=== PATIENT | female | born 1995 | race Caucasian/White ===

== ENCOUNTER 2018-12-07 23:56 | Emergency (ER) | payer SELFPAY ==
[2018-12-08 02:00] LABS: Basophils % (Auto) 0.2 % (0.0-1.8); Eosinophils % (Auto) 0.3 % (0.0-4.3); Hematocrit 35.1 % (30.3-42.9); Hemoglobin 11.7 gm/dl (10.1-14.3); Lymphocytes # (Auto) 1.9 K/mm3 (1.2-5.4); Lymphocytes % (Auto) 18.4 % (13.4-35.0); Mean Corpuscular HGB Conc 33 % (30-34); Mean Corpuscular Volume 84 fl (79-97); Monocytes # (Auto) 0.6 K/mm3 (0.0-0.8); Platelet Count 260 K/mm3 (140-440); Red Cell Distribution Width 15.8 % (13.2-15.2)
[2018-12-08 02:38] LABS: Bilirubin,Urine NEG (Negative); Blood,Urine LG (Negative); Color,Urine Yellow (Yellow); Mucus,Urine FEW /HPF; Protein,Urine <15 mg/dL mg/dL (Negative); Urobilinogen,Urine < 2.0 mg/dL (<2.0)
--- NOTE | 2018-12-08 06:26 | Ultrasound Report ---
FINAL REPORT EXAM: US OB >= 14 WEEKS FETUS HISTORY: 19 wks with spotting COMPARISONS: None. FINDINGS: Transabdominal 2nd trimester grayscale, color Doppler and M-mode obstetric pelvic ultrasound A single living intrauterine is present in breech presentation with recorded cardiac activi ty of 130 beats per minute. Amniotic fluid volume is subjectively normal. Cervical length is approxim ately 4.6 cm. The cervix appears closed. Anterior placenta shows a couple of ill-defined hypoechoic a reas measuring up to 2.8 cm in greatest dimension. No internal flow on color Doppler or masslike qual ities. No retroplacental hemorrhage or other focal placental abnormality. No evidence of previa. Biparietal diameter is 4.6 cm Head circumference is 17.4 cm Abdominal circumference is 15.5 cm Femoral length is 3.2 cm Composite of biometric measurements corresponds to estimated gestational age of 20 weeks 1 day and delivery date of 04/26/2019, which are concordant with reported clinical dates of 19 weeks 4 days and delivery date of 04/30/2019. Imaged portions of the anatomy are grossly unremarkable. The diaphragm, skin line overlying the spine, cardiac chambers, abdominal and placental cord insertions are not optimally visualized. IMPRESSION: Single living intrauterine with concordant dates and no acute complication identified. The cervix appears closed and amniotic fluid volume is subjectively normal. Consider additional imaging f or worsening/persistent symptoms.
--- NOTE | 2018-12-08 07:38 | Emergency Department Report ---
ED Female HPI - General Chief complaint: Vaginal Bleeding Stated complaint: 19WKS BLEEDING Time Seen by Provider: 12/08/18 07:22 Source: patient Mode of arrival: Ambulatory Limitations: No Limitations - History of Present Illness Initial comments: This is a 23-year-old who presents to ED at approximately 19 0 station complaining of vaginal bleeding that began yesterday. She states bleeding is somewhat lightheaded continuous. She states that she receives care at the clinic in [facility]. She denies dysuria, abdominal pain, pelvic pain or any other symptoms. Patient did note that she had intercourse about 2 days ago. MD Complaint: vaginal bleeding - Related Data Previous Rx's Medication Instructions Recorded Last Taken Type Acetaminophen [Tylenol] 325 mg PO TID #20 capsule 12/08/18 Unknown Rx Allergies Allergy/AdvReac Type Severity Reaction Status Date / Time Penicillins Allergy Unknown Verified 12/08/18 01:24 ED Review of Systems ROS: Stated complaint: 19WKS BLEEDING Other details as noted in HPI Comment: All other systems reviewed and negative ED Past Medical Hx - Past Medical History Previous Medical History?: No - Surgical History Past Surgical History?: No - Social History Smoking Status: Never Smoker Substance Use Type: None - Medications Home Medications: Home Medications Medication Instructions Recorded Confirmed Last Taken Type Acetaminophen [Tylenol] 325 mg PO TID #20 capsule 12/08/18 Unknown Rx ED Physical Exam - General Limitations: No Limitations General appearance: alert, in no apparent distress - Head Head exam: Present: atraumatic, normocephalic - Eye Eye exam: Present: normal appearance - ENT ENT exam: Present: mucous membranes moist - Neck Neck exam: Present: normal inspection - Respiratory Respiratory exam: Present: normal lung sounds bilaterally. Absent: respiratory distress - Cardiovascular Cardiovascular Exam: Present: regular rate, normal rhythm. Absent: systolic murmur, diastolic murmur, rubs, gallop - GI/Abdominal GI/Abdominal exam: Present: soft, normal bowel sounds - Extremities Exam Extremities exam: Present: normal inspection - Back Exam Back exam: Present: normal inspection - Neurological Exam Neurological exam: Present: alert, oriented X3 - Psychiatric Psychiatric exam: Present: normal affect, normal mood - Skin Skin exam: Present: warm, dry, intact, normal color. Absent: rash ED Course Vital Signs 12/08/18 12/08/18 12/08/18 00:23 01:20 08:12 Temperature 98.3 F 98.3 F 98.1 F Pulse Rate 87 90 78 Respiratory 18 18 20 Rate Blood Pressure 143/83 143/83 Blood Pressure 122/75 [Right] O2 Sat by Pulse 100 99 99 Oximetry ED Medical Decision Making - Lab Data Result diagrams: 12/08/18 01:27 - Radiology Data Radiology results: report reviewed, image reviewed FINAL REPORT EXAM: US OB gt; = 14 WEEKS FETUS HISTORY: 19 wks with spotting COMPARISONS: None. FINDINGS: Transabdominal 2nd trimester grayscale, color Doppler and M-mode obstetric pelvic ultrasound A single living intrauterine is present in breech presentation with recorded cardiac activity of 130 beats per minute. Amniotic fluid volume is subjectively normal. Cervical length is approximately 4.6 cm. The cervix appears closed. Anterior placenta shows a couple of ill-defined hypoechoic areas measuring up to 2.8 cm in greatest dimension. No internal flow on color Doppler or masslike qualities. No retroplacental hemorrhage or other focal placental abnormality. No evidence of previa. Biparietal diameter is 4.6 cm Head circumference is 17.4 cm Abdominal circumference is 15.5 cm Femoral length is 3.2 cm Composite of biometric measurements corresponds to estimated gestational age of 20 weeks 1 day and delivery date of 04/26/2019, which are concordant with reported clinical dates of 19 weeks 4 days and delivery date of 04/30/2019. Imaged portions of the anatomy are grossly unremarkable. The diaphragm, skin line overlying the spine, cardiac chambers, abdominal and placental cord insertions are not optimally visualized. IMPRESSION: Single living intrauterine with concordant dates and no acute complication identified. The cervix appears closed and amniotic fluid volume is subjectively normal. Consider additional imaging for worsening/persistent symptoms. Transcribed By: GALE Dictated By: LEIGH REA MD Electronically Authenticated By: LEIGH REA MD Signed Date/Time: 12/08/18 0626 - Medical Decision Making 28-year-old female presents to ED with threatened ED course: Pt received ultra sound, CBC, urinalysis, test and quantitative ED All labs within normal limits, Ultrasound shows normal intrauterine . I discussed all findings with the patient. Discussed the patient to the abstain from intercourse until follow-up with her [facility] [facility] I discussed with the patient if follow-up with her [facility] [facility]. I discussed all labs and ultrasound findings with the patient. I discussed with the patient that he if bleeding worsens or new symptoms develop to return to ED immediately Critical care attestation.: If time is entered above; I have spent that time in minutes in the direct care of this critically ill patient, excluding procedure time. ED Disposition Clinical Impression: Threatened in second trimester Disposition: DC-01 TO HOME OR SELFCARE Is pt being admited?: No Does the pt Need Aspirin: No Condition: Stable Instructions: Threatened Miscarriage (ED), (ED) Additional Instructions: Make sure to follow up with your OBGYN as discussed. Absent from intercourse until follow-up which her [facility] [facility] If you have any worsening symptoms or develop new symptoms please return to ED immediately. Prescriptions: Acetaminophen [Tylenol] 325 mg PO TID #20 capsule Referrals: MARIAN TOBIAS MD [Primary Care Provider] - 3-5 Days Forms: Work/School Release Form(ED) Time of Disposition: 07:49
[2018-12-08 08:13] VITALS: BP 122/75
== END 2018-12-08 08:12 | disposition home or self-care (01) ==
LOC: ED 23:56
DX: O20.0 Threatened abortion (principal); Z3A.19 19 weeks gestation of pregnancy
CPT/HCPCS: 36415; 76805; 81001; 84702; 85025; 86850; 86900; 86901

== ENCOUNTER 2019-01-07 01:48 | Inpatient (IN) | payer MEDICAID, OTHER ==
[2019-01-07] MEDS ORDERED: LACTATED RINGERS 1,000 ML ONE (02:08)
[2019-01-07] MEDS ORDERED: LACTATED RINGERS 1,000 ML IV ONE ×2 (02:36→10:40)
[2019-01-07] MEDS ORDERED: STADOL IV ONE (03:41)
--- NOTE | 2019-01-07 03:56 | Ultrasound Report ---
PROCEDURE: US OB >= 14 WEEKS FETUS TECHNIQUE: Real-time limited sonographic examination was performed for evaluation of placenta for ea ch fetus with image documentation (1 or more fetuses). HISTORY: vaginal bleeding and unable to detect fht's COMPARISONS: None . FINDINGS: MATERNAL Uterus: Within normal limits . Cervix length:, 4.3 cm. There is an oval heterogeneous structure in the lower uterine segment measuri ng 11.9 x 9.8 x 10.2 cm. This could be a uterine fibroid. This was not demonstrated on the prior stud y. Internal Os: closed . FETUS IUP: Single living intrauterine . Position: Breech . Placental position: Anterior, without previa . Amniotic fluid volume: Normal Heart rate and rhythm: 90 BPM, Regular . anatomic survey: Normal . MEASUREMENTS BPD: 5.8 cm corresponding to 23 weeks and 6 days . HC: 21.9 cm corresponding to 24 weeks . AC: 19.2 cm corresponding to 23 weeks and 6 days . FL: 4 cm corresponding to 22 weeks and 5 days . Mean Gestational Age (composite criteria): 23 weeks and 4 days . Ratio biometry: Normal . Estimated Weight: 598 grams +/- 89 grams. ounces +/- .ounces. percentile. Interval growth: Appropriate . Estimated Due Date (earliest scan): 05/02/2019 . IMPRESSION: 1. Single living intrauterine gestation at approximately 23 weeks and 4 days . 2. EDC by US 05/02/2019 3. bradycardia. 4. There is an oval heterogeneous structure in the lower uterine segment measuring 11.9 x 9.8 x 10.2 cm. This could be a uterine fibroid. This was not demonstrated on the prior study. This document is electronically signed by Joe Lopez MD., January 07 2019 03:53:58 AM ET
[2019-01-07 04:45] LABS: Hemoglobin 10.2 gm/dl (10.1-14.3); Mean Corpuscular HGB Conc 34 % (30-34); Mean Corpuscular Volume 83 fl (79-97); Platelet Count 276 K/mm3 (140-440); Red Blood Count 3.59 M/mm3 (3.65-5.03); Red Cell Distribution Width 15.4 % (13.2-15.2)
[2019-01-07 04:51] LABS: Bilirubin,Urine NEG (Negative); Blood,Urine LG (Negative); Color,Urine Yellow (Yellow); Mucus,Urine 3+ /HPF; Urobilinogen,Urine < 2.0 mg/dL (<2.0)
[2019-01-07 04:53] LABS: RBC,Urine > 182.0 /HPF (0.0-6.0)
[2019-01-07] MEDS: LACTATED RINGERS 1,000 ML IV SCH (04:55)
[2019-01-07 04:57] LABS: Amphetamine Screen,Urine PRESUMPTIVE NEGATIVE; Benzodiazepines Screen,Urine PRESUMPTIVE NEGATIVE; Cannabinoid Screen,Urine PRESUMPTIVE NEGATIVE; Cocaine Screen,Urine PRESUMPTIVE NEGATIVE; Methadone Screen,Urine PRESUMPTIVE NEGATIVE; Opiate Screen,Urine PRESUMPTIVE NEGATIVE
[2019-01-07 06:15] LABS: Total Cells Counted 100
[2019-01-07 06:16] LABS: Band Neutrophils # (Manual) 0.4 K/mm3; Basophils % (Manual) 0 % (0.0-1.8); Eosinophils % (Manual) 0 % (0.0-4.3)
[2019-01-07 06:18] LABS: Anisocytosis 1+; Large Platelets 1+; Platelet Estimate Consistent w Auto; Poikilocytosis 1+
--- NOTE | 2019-01-07 07:27 | Short Stay Summary ---
Short Stay Documentation Date of service: 01/07/19 - History H&P: obtained from office Past Medical History: No medical history - Allergies and Medications Current Medications: Allergies Penicillins Allergy (Verified 12/08/18 01:24) Unknown Home Medications Medication Instructions Recorded Confirmed Last Taken Type Acetaminophen [Tylenol] 325 mg PO TID #20 capsule 12/08/18 Unknown Rx Active Medications Lactated Ringer's (Lactated Ringers) 1,000 mls @ 125 mls/hr IV DIRECT MANISHA Last Admin: 01/07/19 04:55 Dose: 125 mls/hr Documented by: Short Stay Discharge Plan Follow up with: ALEXX MORSE MD [Primary Care Provider] - 7 Days
--- NOTE | 2019-01-07 09:51 | History and Physical Report ---
History of Present Illness Date of admission: 01/07/19 01:53 Chief complaint: vaginal bleeding History of present illness: 23yo at 23 6/7weeks presents with vaginal bleeding since 11pm that began during sexual intercourse. She bled into the bed and car. She has a history of vaginal bleeding on 4 previous episodes first at 12 weeks. Her US 12/2018 revealed 2.8cm hyperechoic regions and today a grade 3 placenta with 11.9x10cm lower uterine segment mass. Based on clinical presentation hyperechoic mass is suspected placenta abruption. She has had inconsistent care at [facility] with 4 visits and 2 ER visits. She has a recent miscarriage at 11 weeks (measuring 8 weeks) February 2018. She is O positive blood type. Past History Past Surgical History: other (right wrist surgery) Family/Genetic History: other (maternal aunt SLE) Social history: single - Obstetrical History : 2 Number of Living Children: 0 Medications and Allergies Allergies Allergy/AdvReac Type Severity Reaction Status Date / Time Penicillins Allergy Unknown Verified 12/08/18 01:24 Home Medications Medication Instructions Recorded Confirmed Last Taken Type Acetaminophen [Tylenol] 325 mg PO TID #20 capsule 12/08/18 Unknown Rx Active Meds: Active Medications Acetaminophen (Tylenol) 650 mg PO Q4H PRN PRN Reason: Pain, Mild (1-3) Butorphanol Tartrate (Stadol) 1 mg IV Q2H PRN PRN Reason: Labor Pain Diphenhydramine HCl (Benadryl) 25 mg PO Q6H PRN PRN Reason: Itching Lactated Ringer's (Lactated Ringers) 1,000 mls @ 125 mls/hr IV DIRECT MANISHA Last Admin: 01/07/19 04:55 Dose: 125 mls/hr Documented by: Sodium Chloride (Nacl 0.9% 500 Ml) 500 mls @ 0 mls/hr IV ONCE ONE Stop: 01/07/19 09:42 - Vital Signs Vital signs: Vital Signs Pulse Pulse Ox 73 100 01/07/19 01:52 01/07/19 01:52 Temp Pulse Resp BP Pulse Ox 97.8 F 77 18 122/81 100 01/07/19 07:00 01/07/19 07:22 01/07/19 04:55 01/07/19 07:22 01/07/19 03:02 - Physical Exam Abdomen: Positive: soft Cervix: Positive: other (closed, vaginal vault with active moderate vaginal bleeding pouring from introitus on sterile speculum exam. Cervix visible closed with blood coming through cervical os. ) - Obstetrical FHR: other FHR comments: FHT 90 on US FHT 110 Uterine Contraction Pattern: Absent Results Result Diagrams: 01/07/19 04:25 Abnormal lab results 01/07/19 Range/Units 04:25 WBC 21.1 H (4.5-11.0) K/mm3 RBC 3.59 L (3.65-5.03) M/mm3 Hct 30.0 L (30.3-42.9) % RDW 15.4 H (13.2-15.2) % Seg Neuts % (Manual) 94.0 H (40.0-70.0) % Lymphocytes % (Manual) 3.0 L (13.4-35.0) % Seg Neutrophils # Man 19.8 H (1.8-7.7) K/mm3 Lymphocytes # (Manual) 0.6 L (1.2-5.4) K/mm3 All other labs normal. Ultrasound: report reviewed, image reviewed Assessment and Plan - Patient Problems (1) 23 weeks gestation of Current Visit: Yes Status: Acute Plan to address problem: Per ACOG guidelines will administer corticosteroids at 24 weeks unless recomm ended by sprinkling system irrigator or maternal medicine to administer at 23 6/7weeks. Discussed expectant management with patient and father of baby. Will check FHT Q4hrs and mother will monitor movement. (2) Placental abruption Current Visit: Yes Status: Acute Plan to address problem: 2 large bore IV needles IVF bolus Type and cross 2 units prRBCs Serial CBCs PT/PTT (3) Vaginal bleeding affecting early Current Visit: Yes Status: Acute (4) Anemia due to acute blood loss Current Visit: Yes Status: Acute Plan to address problem: Type and crossed 2 units pRBCs. Pre-treat with Tylenol and Benadryl. Will monitor CBC and replace blood products per mass transfusion protocol as necessary.
[2019-01-07] MEDS ORDERED: NACL 0.9% 500 ML 500 ML IV NR (10:30)
[2019-01-07] MEDS ORDERED: BENADRYL PO PRN (10:30)
[2019-01-07 11:13] LABS: INR 1.04 (0.87-1.13)
[2019-01-07 11:14] LABS: Partial Thromboplastin Time 25.2 Sec. (24.2-36.6)
--- NOTE | 2019-01-07 11:40 | Event Note ---
After discussion with NICU, will administer antental corticosteroids for lung maturity.
[2019-01-07] MEDS ORDERED: CELESTONE SOLUSPAN IM SCH (12:00)
--- NOTE | 2019-01-07 12:30 | Consultation ---
History of Present Illness Consult date: 01/07/19 Requesting physician: EMILY DIA Reason for consult: other (vaginal bleeding) History of present illness: CURRENT PRESENTATION: As you are likely aware this is a 23 year old para 0010 who presented to [facility] due to postcoital vaginal bleeding since 11pm. She bled into the bed and car. She has a history of vaginal bleeding on 4 previous episodes first at 12 weeks. Her US 12/2018 revealed 2.8cm hyperechoic regions and today a grade 3 placenta with 11.9x10 cm lower uterine segment mass. Based on clinical presentation hyperechoic mass is suspected placenta abruption. She has had inconsistent care at [facility] with 4 visits and 2 ER visits. She has a recent miscarriage at 11 weeks (measuring 8 weeks) February 2018. At present the patient describes mild ongoing bleeding. She denies leakage of fluid and has not had regular contractions. +FM. Review of Systems: Denies headache, blurred vision, scotomata, RUQ pain, dysuria, or leg pain PAST OBSTETRICAL HISTORY: See note in patients chart. SAB x 1 [facility] ULTRASOUND: See ultrasound findings in patients chart. LAB FINDNGS: See notes in patients chart. Past History Past Surgical History: other (right wrist surgery) Family/Genetic History: other (maternal aunt SLE) - Obstetrical History : 2 Medications and Allergies Allergies Allergy/AdvReac Type Severity Reaction Status Date / Time Penicillins Allergy Unknown Verified 12/08/18 01:24 Home Medications Medication Instructions Recorded Confirmed Last Taken Type Acetaminophen [Tylenol] 325 mg PO TID #20 capsule 12/08/18 Unknown Rx Active Meds: Active Medications Acetaminophen (Tylenol) 650 mg PO Q4H PRN PRN Reason: Pain, Mild (1-3) Betamethasone Acet/Betameth SodPhos (Celestone Soluspan) 12 mg IM Q24H MANISHA Stop: 01/08/19 12:01 Butorphanol Tartrate (Stadol) 1 mg IV Q2H PRN PRN Reason: Labor Pain Diphenhydramine HCl (Benadryl) 25 mg PO Q6H PRN PRN Reason: Itching Lactated Ringer's (Lactated Ringers) 1,000 mls @ 125 mls/hr IV DIRECT MANISHA Last Admin: 01/07/19 04:55 Dose: 125 mls/hr Documented by: Sodium Chloride (Nacl 0.9% 500 Ml) 500 mls @ 0 mls/hr IV ONCE NR Stop: 01/07/19 17:30 - Vital Signs Vital signs: Vital Signs Pulse Pulse Ox 73 100 01/07/19 01:52 01/07/19 01:52 Temp Pulse Resp BP Pulse Ox 97.8 F 82 18 121/72 100 01/07/19 07:00 01/07/19 09:52 01/07/19 04:55 01/07/19 09:52 01/07/19 03:02 Results Result Diagrams: 01/07/19 04:25 Abnormal lab results 01/07/19 01/07/19 01/07/19 Range/Units 04:25 04:30 10:32 WBC 21.1 H (4.5-11.0) K/mm3 RBC 3.59 L (3.65-5.03) M/mm3 Hct 30.0 L (30.3-42.9) % RDW 15.4 H (13.2-15.2) % Seg Neuts % (Manual) 94.0 H (40.0-70.0) % Lymphocytes % (Manual) 3.0 L (13.4-35.0) % Seg Neutrophils # Man 19.8 H (1.8-7.7) K/mm3 Lymphocytes # (Manual) 0.6 L (1.2-5.4) K/mm3 Hemoglobin A1c < 4.0 L (4-6) % Crossmatch See Detail All other labs normal. Assessment and Plan ASSESSMENT As stated above this is a patient at 23 weeks admitted with vaginal bleeding. Rule out (slow) chronic abruption (unlikely given current presentation). Sonographic findings do NOT suggest placental abruption. Rule out transient bradycardia. Maternal symptoms and tocodynametry do not suggest labor. Previous ultrasound with posterior and suggestion retroplacental bleeding Chronic abruptio placenta possible RECOMMENDATIONS 1. Agree with admission overnight (~ 24 hours) for FHR surveillance 2. Continue pad counts 3. Consider discharge home tomorrow if: LAURA normal. No increase in retroplacental findings No further vaginal bleeding Nitrazine negative. 4. We agree with steroids to enhance lung maturation. 5. We reviewed the warning signs of labor with this patient today. 6. [facility] to follow-up next week. Thank you for allowing us to participate in the care of this patient. We look forward to the opportunity to assist in her continued management. If you have any questions, please contact our office at [phone].
[2019-01-07 14:06] LABS: Hematocrit 23.9 % (30.3-42.9); Hemoglobin 8.2 gm/dl (10.1-14.3); Mean Corpuscular HGB Conc 34 % (30-34); Mean Corpuscular Volume 84 fl (79-97); Platelet Count 213 K/mm3 (140-440); Red Blood Count 2.86 M/mm3 (3.65-5.03); Red Cell Distribution Width 15.4 % (13.2-15.2)
[2019-01-07] MEDS: TYLENOL PO PRN (14:32)
[2019-01-07] MEDS: DECADRON IV SCH (15:30)
[2019-01-07 18:34] LABS: Hemoglobin 9.1 gm/dl (10.1-14.3); Mean Corpuscular HGB Conc 34 % (30-34); Mean Corpuscular Volume 85 fl (79-97); Platelet Count 220 K/mm3 (140-440); Red Blood Count 3.17 M/mm3 (3.65-5.03); Red Cell Distribution Width 15.2 % (13.2-15.2)
[2019-01-08 01:18] LABS: Hematocrit 28.8 % (30.3-42.9); Mean Corpuscular HGB Conc 35 % (30-34); Mean Corpuscular Volume 87 fl (79-97); Platelet Count 202 K/mm3 (140-440); Red Blood Count 3.33 M/mm3 (3.65-5.03); Red Cell Distribution Width 15.5 % (13.2-15.2)
[2019-01-08] MEDS: DECADRON IV SCH ×2 (03:00→16:00)
[2019-01-08] MEDS: LACTATED RINGERS 1,000 ML IV SCH ×2 (07:56→22:07)
--- NOTE | 2019-01-08 11:28 | Progress Note ---
Assessment and Plan - Patient Problems (1) 23 weeks gestation of Current Visit: Yes Status: Acute Plan to address problem: Per ACOG guidelines will administer corticosteroids at 24 weeks unless recommended by rehabilitation worker or maternal medicine to administer at 23 6/7weeks. Discussed expectant management with patient and father of baby. Will check FHT Q4hrs and mother will monitor movement. (2) Placental abruption Onset Date: 01/09/19 Current Visit: Yes Status: Acute Qualifiers: Trimester: second trimester Qualified Code(s): O45.92 - Premature separation of placenta, unspecified, second trimester Plan to address problem: 2 large bore IV needles IVF bolus Type and cross 2 units prRBCs Serial CBCs PT/PTT (3) Vaginal bleeding affecting early Current Visit: Yes Status: Acute (4) Anemia due to acute blood loss Current Visit: Yes Status: Acute Plan to address problem: s/p 2 units pRBCs. Will monitor CBC and replace blood products per mass transfusion protocol as necessary. Subjective - Subjective Interval history: 23yo at 23 6/7weeks presents with vaginal bleeding since 11pm that began during sexual intercourse. She bled into the bed and car. She has a history of vaginal bleeding on 4 previous episodes first at 12 weeks. Her US 12/2018 revealed 2.8cm hyperechoic regions and today a grade 3 placenta with 11.9x10cm lower uterine segment mass. Based on clinical presentation hyperechoic mass is suspected placenta abruption. She has had inconsistent care at [facility] with 4 visits and 2 ER visits. She has a recent miscarriage at 11 weeks (measuring 8 weeks) February 2018. She is O positive blood type. Objective - Vital Signs Vital Signs: Vital Signs - 12hr 01/08/19 01/08/19 01/08/19 02:52 03:01 05:43 Temperature 98.3 F Pulse Rate 73 83 71 Respiratory 20 Rate Blood Pressure 95/63 Blood Pressure 95/63 [Right] O2 Sat by Pulse 99 Oximetry 01/08/19 01/08/19 01/08/19 05:48 05:53 05:58 Temperature Pulse Rate 74 78 77 Respiratory Rate Blood Pressure Blood Pressure [Right] O2 Sat by Pulse 97 97 97 Oximetry 01/08/19 01/08/19 01/08/19 06:03 06:08 06:13 Temperature Pulse Rate 74 74 88 Respiratory Rate Blood Pressure Blood Pressure [Right] O2 Sat by Pulse 97 96 97 Oximetry 01/08/19 01/08/19 01/08/19 06:18 06:23 06:28 Temperature Pulse Rate 73 82 84 Respiratory Rate Blood Pressure Blood Pressure [Right] O2 Sat by Pulse 97 96 98 Oximetry 01/08/19 01/08/19 01/08/19 06:33 06:38 06:43 Temperature Pulse Rate 74 73 77 Respiratory Rate Blood Pressure Blood Pressure [Right] O2 Sat by Pulse 97 98 98 Oximetry 01/08/19 01/08/19 01/08/19 06:48 06:53 06:58 Temperature Pulse Rate 72 73 74 Respiratory Rate Blood Pressure Blood Pressure [Right] O2 Sat by Pulse 98 98 97 Oximetry 01/08/19 01/08/19 01/08/19 07:07 07:12 07:17 Temperature Pulse Rate 78 71 69 Respiratory Rate Blood Pressure Blood Pressure [Right] O2 Sat by Pulse 99 98 98 Oximetry 01/08/19 01/08/19 01/08/19 07:22 07:27 07:32 Temperature Pulse Rate 70 73 72 Respiratory Rate Blood Pressure Blood Pressure [Right] O2 Sat by Pulse 98 98 98 Oximetry 01/08/19 01/08/19 01/08/19 07:37 07:42 07:47 Temperature Pulse Rate 76 72 83 Respiratory Rate Blood Pressure Blood Pressure [Right] O2 Sat by Pulse 97 99 98 Oximetry 01/08/19 01/08/19 01/08/19 07:52 07:57 08:02 Temperature Pulse Rate 70 82 71 Respiratory Rate Blood Pressure Blood Pressure [Right] O2 Sat by Pulse 98 97 98 Oximetry 01/08/19 01/08/19 01/08/19 08:07 08:12 08:14 Temperature Pulse Rate 73 75 69 Respiratory Rate Blood Pressure 117/64 Blood Pressure [Right] O2 Sat by Pulse 98 98 Oximetry 01/08/19 01/08/19 01/08/19 08:15 08:17 08:22 Temperature 98.3 F Pulse Rate 72 70 Respiratory 18 Rate Blood Pressure Blood Pressure [Right] O2 Sat by Pulse 99 98 Oximetry 01/08/19 01/08/19 01/08/19 08:27 08:32 08:37 Temperature Pulse Rate 70 70 69 Respiratory Rate Blood Pressure Blood Pressure [Right] O2 Sat by Pulse 99 98 97 Oximetry 01/08/19 01/08/19 01/08/19 08:42 08:47 08:52 Temperature Pulse Rate 69 68 69 Respiratory Rate Blood Pressure Blood Pressure [Right] O2 Sat by Pulse 98 98 97 Oximetry 01/08/19 01/08/19 01/08/19 08:57 09:02 09:07 Temperature Pulse Rate 65 71 66 Respiratory Rate Blood Pressure Blood Pressure [Right] O2 Sat by Pulse 98 97 97 Oximetry 01/08/19 01/08/19 01/08/19 09:12 09:17 09:22 Temperature Pulse Rate 69 66 67 Respiratory Rate Blood Pressure Blood Pressure [Right] O2 Sat by Pulse 98 97 99 Oximetry 01/08/19 01/08/19 01/08/19 09:27 09:32 09:37 Temperature Pulse Rate 65 64 66 Respiratory Rate Blood Pressure Blood Pressure [Right] O2 Sat by Pulse 97 97 97 Oximetry 01/08/19 01/08/19 01/08/19 09:42 09:47 09:52 Temperature Pulse Rate 68 67 67 Respiratory Rate Blood Pressure Blood Pressure [Right] O2 Sat by Pulse 96 98 98 Oximetry 01/08/19 01/08/19 01/08/19 09:57 10:02 10:07 Temperature Pulse Rate 65 76 66 Respiratory Rate Blood Pressure Blood Pressure [Right] O2 Sat by Pulse 97 99 98 Oximetry 01/08/19 01/08/19 01/08/19 10:12 10:17 10:44 Temperature Pulse Rate 65 61 68 Respiratory Rate Blood Pressure Blood Pressure [Right] O2 Sat by Pulse 99 99 92 Oximetry 01/08/19 01/08/19 01/08/19 10:45 10:50 10:55 Temperature Pulse Rate 64 61 71 Respiratory Rate Blood Pressure Blood Pressure [Right] O2 Sat by Pulse 97 98 97 Oximetry 01/08/19 01/08/19 01/08/19 11:00 11:05 11:10 Temperature Pulse Rate 65 66 64 Respiratory Rate Blood Pressure Blood Pressure [Right] O2 Sat by Pulse 98 97 98 Oximetry 01/08/19 01/08/19 01/08/19 11:15 11:20 11:22 Temperature Pulse Rate 69 62 63 Respiratory Rate Blood Pressure Blood Pressure [Right] O2 Sat by Pulse 97 97 93 Oximetry 01/08/19 11:25 Temperature Pulse Rate 63 Respiratory Rate Blood Pressure Blood Pressure [Right] O2 Sat by Pulse 95 Oximetry - Labs Labs: Abnormal Labs 01/07/19 01/07/19 01/07/19 04:25 04:30 10:32 WBC 21.1 H RBC 3.59 L Hgb Hct 30.0 L MCHC RDW 15.4 H Seg Neuts % (Manual) 94.0 H Lymphocytes % (Manual) 3.0 L Seg Neutrophils # Man 19.8 H Lymphocytes # (Manual) 0.6 L Hemoglobin A1c < 4.0 L Crossmatch See Detail 01/07/19 01/07/19 01/08/19 13:40 18:18 00:49 WBC 13.1 H 14.4 H 13.7 H RBC 2.86 L 3.17 L 3.33 L Hgb 8.2 L 9.1 L 10.0 L Hct 23.9 L D 27.0 L 28.8 L MCHC 35 H RDW 15.4 H 15.5 H Seg Neuts % (Manual) Lymphocytes % (Manual) Seg Neutrophils # Man Lymphocytes # (Manual) Hemoglobin A1c Crossmatch Laboratory Results - last 24 hr 01/07/19 01/07/19 01/07/19 04:25 04:30 10:27 WBC RBC Hgb Hct MCV MCH MCHC RDW Plt Count Hemoglobin A1c TSH 2.310 RPR Nonreactive Blood Type O POSITIVE Antibody Screen Negative KB % Cells Crossmatch See Detail 01/07/19 01/07/19 01/07/19 10:32 10:32 13:40 WBC 13.1 H RBC 2.86 L Hgb 8.2 L Hct 23.9 L D MCV 84 MCH 29 MCHC 34 RDW 15.4 H Plt Count 213 Hemoglobin A1c < 4.0 L TSH RPR Blood Type Antibody Screen KB % Cells Negative Crossmatch 01/07/19 01/08/19 18:18 00:49 WBC 14.4 H 13.7 H RBC 3.17 L 3.33 L Hgb 9.1 L 10.0 L Hct 27.0 L 28.8 L MCV 85 87 MCH 29 30 MCHC 34 35 H RDW 15.2 15.5 H Plt Count 220 202 Hemoglobin A1c TSH RPR Blood Type Antibody Screen KB % Cells Crossmatch
--- NOTE | 2019-01-08 14:06 | Consultation ---
History of Present Illness Consult date: 01/08/19 History of present illness: CURRENT PRESENTATION: Ms. 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 She bled into the bed and car. She has a history of vaginal bleeding on 4 previous episodes first at 12 weeks. Anemia S/P blood transfusion Hb increased from 8.2 to 10 Steroids second dose due today Suspected abruption See US Report - US repeated earlier today but not yet r eported 1rst episode at 12 weeks ?? intercourse 2nd episode at 20 weeks [facility] admitted overnight and discharged (intercourse) 3rd episode at 22 weeks not admitted more like spotting (no intercourse) 4th episode (current admission) heavy bleeding more than period (08/12 now 11/12) occurred immediately after intercourse Her US 12/2018 revealed 2.8cm hyperechoic regions and today a grade 3 placenta with 11.9x10 cm lower uterine segment mass. Based on clinical presentation hyperechoic mass is suspected placenta abruption. Now small amount of bleeding checked pad "last changed about one hour ago Vitals pulse 70 , 117/64 and 95/63 sat at 97% per nurse PAST OBSTETRICAL HISTORY: See note in patients chart. SAB x 1 [facility] ULTRASOUND: See ultrasound findings in patients chart. Past History Past Surgical History: other (right wrist surgery) Family/Genetic History: other (maternal aunt SLE) - Obstetrical History : 2 Medications and Allergies Allergies Allergy/AdvReac Type Severity Reaction Status Date / Time Penicillins Allergy Unknown Verified 12/08/18 01:24 Home Medications Medication Instructions Recorded Confirmed Last Taken Type Vit-Fe Fumar-FA [ 1 tab PO QDAY 01/07/19 01/07/19 01/06/19 11:00 History Vitamin] Active Meds: Active Medications Acetaminophen (Tylenol) 650 mg PO Q4H PRN PRN Reason: Pain, Mild (1-3) Last Admin: 01/07/19 14:32 Dose: 650 mg Documented by: Butorphanol Tartrate (Stadol) 1 mg IV Q2H PRN PRN Reason: Labor Pain Dexamethasone (Decadron) 6 mg IV Q12H MANISHA Stop: 01/09/19 04:01 Last Admin: 01/08/19 03:00 Dose: 6 mg Documented by: Diphenhydramine HCl (Benadryl) 25 mg PO Q6H PRN PRN Reason: Itching Last Admin: 01/07/19 14:32 Dose: 25 mg Documented by: Lactated Ringer's (Lactated Ringers) 1,000 mls @ 125 mls/hr IV DIRECT MANISHA Last Admin: 01/08/19 07:56 Dose: 125 mls/hr Documented by: - Vital Signs Vital signs: Vital Signs Pulse Pulse Ox 73 100 01/07/19 01:52 01/07/19 01:52 Temp Pulse Resp BP Pulse Ox 98.3 F 70 18 118/67 98 01/08/19 08:15 01/08/19 14:00 01/08/19 08:15 01/08/19 13:25 01/08/19 14:00 Results Result Diagrams: 01/08/19 00:49 Abnormal lab results 01/07/19 01/07/19 01/07/19 Range/Units 04:30 13:40 18:18 WBC 13.1 H 14.4 H (4.5-11.0) K/mm3 RBC 2.86 L 3.17 L (3.65-5.03) M/mm3 Hgb 8.2 L 9.1 L (10.1-14.3) gm/dl Hct 23.9 L D 27.0 L (30.3-42.9) % MCHC (30-34) % RDW 15.4 H (13.2-15.2) % Crossmatch See Detail 01/08/19 Range/Units 00:49 WBC 13.7 H (4.5-11.0) K/mm3 RBC 3.33 L (3.65-5.03) M/mm3 Hgb 10.0 L (10.1-14.3) gm/dl Hct 28.8 L (30.3-42.9) % MCHC 35 H (30-34) % RDW 15.5 H (13.2-15.2) % Crossmatch All other labs normal. Assessment and Plan 1. [place] IUP at 24 0/7 weeks 2. Vag Bleeding - Suspected Abruption (Her US 12/2018 revealed 2.8cm hyperechoic regions and current US a grade 3 placenta with 11.9x10cm lower uterine segment mass. Based on clinical presentation hyperechoic mass is suspected placenta abruption) 3. H/O post coital bleeding 4. Anemia Recommendations: 1. Steroids for FLM 2. Continued in house conservative management 3. US done earlier today - results pending - please compare with prior area of suspected abruption for poss expansion 4. NICU consult if not done 5. Seq leg compressors 6. Drug screen was neg 7. Repeat CBC in am 8. If bleeding increases would give Mg for neuroprophylaxis if delivery could be anticipated 9. Told patient to avoid intercourse 10. Iron BID 11. Type and cross for 2 additional units (hold) should bleeding increase 12. Would sign consent for C/S if bleeding increases or compromise
[2019-01-08] MEDS: FEOSOL PO SCH (22:06)
[2019-01-09] MEDS: DECADRON IV SCH (04:12)
[2019-01-09] MEDS: LACTATED RINGERS 1,000 ML IV SCH ×2 (08:38→17:28)
[2019-01-09] MEDS: FEOSOL PO SCH ×2 (10:28→22:21)
--- NOTE | 2019-01-09 12:29 | Progress Note ---
Assessment and Plan - Patient Problems (1) 24 weeks gestation of Onset Date: 01/09/19 Current Visit: Yes Status: Acute Plan to address problem: A: IUP @ 24 1/7 weeks Placental abruption - stable Acute blood loss anemia - stable S/P Steroids for FLM P: Continue with observation Will follow serial H/H Repeat Ob U/s today (2) Placental abruption Onset Date: 01/09/19 Current Visit: Yes Status: Acute Qualifiers: Trimester: second trimester Qualified Code(s): O45.92 - Premature separation of placenta, unspecified, second trimester Subjective - Subjective Date of service: 01/09/19 Principal diagnosis: IUP @ 24 1/7 weeks; Suspected abruption Interval history: Pt is a 23yo HF at 24 1/7weeks who presented with vaginal bleeding 2 days ago that begun during sexual intercourse. She bled into the bed and car. She has a history of vaginal bleeding on 4 previous episodes first at 12 weeks. Her US 12/2018 revealed 2.8cm hyperechoic regions and a grade 3 placenta with 11.9x10cm lower uterine segment mass. Based on clinical presentation hyperechoic mass is suspected placenta abruption. She has had inconsistent care at [facility] with 4 visits and 2 ER visits. She has a recent miscarriage at 11 weeks (measuring 8 weeks) February 2018. Since admission she passed large clots and was transfused 2 units of blood, but has not bled since...only spotting now. She has completed her steroids. Patient reports: movement normal, no new complaints, no loss of fluid, no vaginal bleeding, no contractions Objective - Vital Signs Vital Signs: Vital Signs - 12hr 01/09/19 01/09/19 01/09/19 00:30 00:32 04:05 Temperature 97 F L 97.5 F L Pulse Rate 74 Respiratory 16 16 Rate Blood Pressure 101/57 Blood Pressure [Right] 01/09/19 01/09/19 01/09/19 04:11 08:25 12:00 Temperature 97.4 F L Pulse Rate 73 73 73 Respiratory 18 Rate Blood Pressure 101/53 125/61 119/65 Blood Pressure 125/61 [Right] 01/09/19 12:01 Temperature 98.3 F Pulse Rate 73 Respiratory 18 Rate Blood Pressure Blood Pressure 119/65 [Right] - Exam Abdomen: Present: normal appearance, soft FHR: auscultation normal Uterine Contraction Pattern: Absent - Labs Labs: Abnormal Labs 01/07/19 01/07/19 01/07/19 04:25 04:30 10:32 WBC 21.1 H RBC 3.59 L Hgb Hct 30.0 L MCHC RDW 15.4 H Seg Neuts % (Manual) 94.0 H Lymphocytes % (Manual) 3.0 L Seg Neutrophils # Man 19.8 H Lymphocytes # (Manual) 0.6 L Hemoglobin A1c < 4.0 L Crossmatch See Detail 01/07/19 01/07/19 01/08/19 13:40 18:18 00:49 WBC 13.1 H 14.4 H 13.7 H RBC 2.86 L 3.17 L 3.33 L Hgb 8.2 L 9.1 L 10.0 L Hct 23.9 L D 27.0 L 28.8 L MCHC 35 H RDW 15.4 H 15.5 H Seg Neuts % (Manual) Lymphocytes % (Manual) Seg Neutrophils # Man Lymphocytes # (Manual) Hemoglobin A1c Crossmatch
[2019-01-09 13:49] LABS: Hematocrit 29.7 % (30.3-42.9); Mean Corpuscular HGB Conc 34 % (30-34); Mean Corpuscular Volume 87 fl (79-97); Platelet Count 205 K/mm3 (140-440); Red Blood Count 3.41 M/mm3 (3.65-5.03); Red Cell Distribution Width 15.6 % (13.2-15.2)
--- NOTE | 2019-01-09 15:47 | Consultation ---
History of Present Illness Consult date: 01/09/19 History of present illness: the patient reports that she is doing well today and that she feels much better, she says that her bleeding has all but subsided and that she had this bleeding after sex, she still has some spotting but much improved Past History Past Surgical History: other (right wrist surgery) Family/Genetic History: other (maternal aunt SLE) - Obstetrical History : 2 Medications and Allergies Allergies Allergy/AdvReac Type Severity Reaction Status Date / Time Penicillins Allergy Unknown Verified 12/08/18 01:24 Home Medications Medication Instructions Recorded Confirmed Last Taken Type Vit-Fe Fumar-FA [ 1 tab PO QDAY 01/07/19 01/07/19 01/06/19 11:00 History Vitamin] Active Meds: Active Medications Acetaminophen (Tylenol) 650 mg PO Q4H PRN PRN Reason: Pain, Mild (1-3) Last Admin: 01/07/19 14:32 Dose: 650 mg Documented by: Butorphanol Tartrate (Stadol) 1 mg IV Q2H PRN PRN Reason: Labor Pain Diphenhydramine HCl (Benadryl) 25 mg PO Q6H PRN PRN Reason: Itching Last Admin: 01/07/19 14:32 Dose: 25 mg Documented by: Ferrous Sulfate (Feosol) 325 mg PO BID MANISHA Last Admin: 01/09/19 10:28 Dose: 325 mg Documented by: Lactated Ringer's (Lactated Ringers) 1,000 mls @ 125 mls/hr IV DIRECT MANISHA Last Admin: 01/09/19 08:38 Dose: 125 mls/hr Documented by: Review of Systems Eyes: no blurred vision (good FM) Cardiovascular: no chest pain, no orthopnea, no rapid/irregular heart beat Gastrointestinal: no abdominal pain - Vital Signs Vital signs: Vital Signs Pulse Pulse Ox 73 100 01/07/19 01:52 01/07/19 01:52 Temp Pulse Resp BP Pulse Ox 98.3 F 73 18 119/65 99 01/09/19 12:01 01/09/19 12:01 01/09/19 12:01 01/09/19 12:01 01/08/19 16:22 - Physical Exam Cardiovascular: Regular rate Abdomen: Positive: soft. Negative: distention, tenderness - Obstetrical FHR: auscultation normal Results Result Diagrams: 01/09/19 13:06 Abnormal lab results 01/09/19 Range/Units 13:06 WBC 13.1 H (4.5-11.0) K/mm3 RBC 3.41 L (3.65-5.03) M/mm3 Hgb 10.0 L (10.1-14.3) gm/dl Hct 29.7 L (30.3-42.9) % RDW 15.6 H (13.2-15.2) % All other labs normal. Assessment and Plan [place] IUP at 24 1/7 weeks 2. Vag Bleeding - Suspected Abruption US was repeated today (Her US 12/2018 revealed 2.8cm hyperechoic regions and current US a grade 3 placenta with 11.9x10cm lower uterine segment mass. Based on clinical presentation hyperechoic mass is suspected placenta abruption) 3. H/O post coital bleeding - this bleeding was also after sex 4. Anemia Recommendations: 1. Steroids for FLM course 2. Continued in house conservative management at this time bleeding has improved 3. US done today and results are pending 4. NICU consult 5. Seq leg compressors 6. Drug screen was neg 7. Repeat CBC as needed 8. If bleeding increases would give Mg for neuroprophylaxis if delivery could be anticipated 9. Told patient to avoid intercourse for the rest of the 10. Iron BID 11. Type and cross for 2 additional units (hold) should bleeding increase 12. Would sign consent for C/S if bleeding increases or compromise 13. Once patietn is stable and has no bleeding and reassuring status could consider DC home but would wait until a period or 48 hours no bleeding
--- NOTE | 2019-01-09 16:09 | Ultrasound Report ---
PROCEDURE: US OB FOLLOW UP TECHNIQUE: Transabdominal OB ultrasound. HISTORY: IUP @ 24 weeks; Placental abruption COMPARISONS: Earliest OB ultrasound January 07, 2019. FINDINGS: Single intrauterine dates 23.5 weeks. ELIZABETH equals May 03, 2019. This is 1 days older compare d to the prior ultrasound and is within normal limits. EFW equals 672 +/- 99 g. Percentile equals 44%. BPD: 23.1 weeks. HC: 23.1 weeks. AC: 24.4 weeks. FL: 24.1 weeks. CI: U1.6 (71-87) HC/AC: 1.06 Presentation: Breech. Placenta: Anterior lateral. Grade 2. No previa. Closed cervix measures 4.5 cm. heart rate: 143 BPM. Amniotic fluid index: 16.9 cm. Within normal limits. IMPRESSION: * Single live intrauterine . This document is electronically signed by Juvencio Bowers MD., January 09 2019 04:07:45 PM ET
[2019-01-09] MEDS: PEPCID PO SCH (22:51)
[2019-01-10] MEDS: PEPCID PO SCH ×2 (09:59→21:05)
[2019-01-10] MEDS: FEOSOL PO SCH ×2 (09:59→21:05)
--- NOTE | 2019-01-10 10:03 | Progress Note ---
Assessment and Plan - Patient Problems (1) 24 weeks gestation of Onset Date: 01/09/19 Current Visit: Yes Status: Acute Plan to address problem: A: IUP @ 24 2/7 weeks Placental abruption - resolved Acute blood loss anemia - stable S/P Steroids for FLM P: Continue with observation May go home if no bleeding x 48hrs ( tomorrow) (2) Placental abruption Onset Date: 01/09/19 Current Visit: Yes Status: Acute Qualifiers: Trimester: second trimester Qualified Code(s): O45.92 - Premature separation of placenta, unspecified, second trimester Subjective - Subjective Date of service: 01/10/19 Principal diagnosis: IUP @ 24 2/7 weeks; Suspected abruption Interval history: Pt is a 23yo HF at 24 2/7weeks who presented with vaginal bleeding 3 days ago that begun during sexual intercourse. She bled into the bed and car. She has a history of vaginal bleeding on 4 previous episodes first at 12 weeks. Her US 12/2018 revealed 2.8cm hyperechoic regions and a grade 3 placenta with 11.9x10cm lower uterine segment mass. Based on clinical presentation hyperechoic mass was suspected placenta abruption. She has had inconsistent care at [facility] with 4 visits and 2 ER visits. She has a recent miscarriage at 11 weeks (measuring 8 weeks) February 2018. Since admission she passed large clots and was transfused 2 units of blood, but has not bled since...only spotting now. She has completed her steroids, and repeat Ob u/s showed no evidence of placental abruption. Patient reports: movement normal, no new complaints, no loss of fluid, no vaginal bleeding, no contractions Objective - Vital Signs Vital Signs: Vital Signs - 12hr 01/10/19 07:45 Temperature 97.1 F L Pulse Rate 52 L Respiratory 18 Rate Blood Pressure 110/56 Blood Pressure 110/56 [Right] - Exam Abdomen: Present: normal appearance, soft Uterus: Present: normal FHR: auscultation normal Uterine Contraction Monitor Mode: External Uterine Contraction Pattern: Absent - Labs Labs: Abnormal Labs 01/07/19 01/07/19 01/07/19 04:25 04:30 10:32 WBC 21.1 H RBC 3.59 L Hgb Hct 30.0 L MCHC RDW 15.4 H Seg Neuts % (Manual) 94.0 H Lymphocytes % (Manual) 3.0 L Seg Neutrophils # Man 19.8 H Lymphocytes # (Manual) 0.6 L Hemoglobin A1c < 4.0 L Crossmatch See Detail 01/07/19 01/07/19 01/08/19 13:40 18:18 00:49 WBC 13.1 H 14.4 H 13.7 H RBC 2.86 L 3.17 L 3.33 L Hgb 8.2 L 9.1 L 10.0 L Hct 23.9 L D 27.0 L 28.8 L MCHC 35 H RDW 15.4 H 15.5 H Seg Neuts % (Manual) Lymphocytes % (Manual) Seg Neutrophils # Man Lymphocytes # (Manual) Hemoglobin A1c Crossmatch 01/09/19 13:06 WBC 13.1 H RBC 3.41 L Hgb 10.0 L Hct 29.7 L MCHC RDW 15.6 H Seg Neuts % (Manual) Lymphocytes % (Manual) Seg Neutrophils # Man Lymphocytes # (Manual) Hemoglobin A1c Crossmatch Laboratory Results - last 24 hr 01/09/19 13:06 WBC 13.1 H RBC 3.41 L Hgb 10.0 L Hct 29.7 L MCV 87 MCH 29 MCHC 34 RDW 15.6 H Plt Count 205 - Results US- obstetric: report reviewed (No placental abruption, Breech, LAURA 16.9 EFW 672gm, Cervical length 4.5cm)
[2019-01-10] MEDS: LACTATED RINGERS 1,000 ML IV SCH ×2 (13:12→21:01)
[2019-01-10] MEDS: COLACE PO SCH (21:05)
[2019-01-10] MEDS ORDERED: MILK OF MAGNESIA PO PRN (22:00)
--- NOTE | 2019-01-11 09:33 | Progress Note ---
Assessment and Plan - Patient Problems (1) 23 weeks gestation of Current Visit: Yes Status: Acute (2) Placental abruption Onset Date: 01/09/19 Current Visit: Yes Status: Acute Qualifiers: Trimester: second trimester Qualified Code(s): O45.92 - Premature separation of placenta, unspecified, second trimester Plan to address problem: 2 large bore IV needles IVF bolus s/p 2 units prRBCs Serial CBCs Mode of delivery planned csection due to breech presentation (3) Vaginal bleeding affecting early Current Visit: Yes Status: Acute (4) Anemia due to acute blood loss Current Visit: Yes Status: Acute Plan to address problem: s/p 2 units pRBCs. Will monitor CBC and replace blood products per mass transfusion protocol as necessary. (5) 24 weeks gestation of Onset Date: 01/09/19 Current Visit: Yes Status: Acute Plan to address problem: s/p steroids for lung maturity Mild bleeding with occasional passage of clots persists. Awaiting 48hr with no vaginal bleeding and will consider discharge. Continue bedrest with bedpan. Subjective - Subjective Principal diagnosis: IUP @ 24 2/7 weeks; Suspected abruption Interval history: 23yo at 23 6/7weeks presents with vaginal bleeding since 11pm that began during sexual intercourse. She bled into the bed and car. She has a history of vaginal bleeding on 4 previous episodes first at 12 weeks. Her US 12/2018 revealed 2.8cm hyperechoic regions and today a grade 3 placenta with 11.9x10cm lower uterine segment mass. Based on clinical presentation hyperechoic mass is suspected placenta abruption. She has had inconsistent care at [facility] with 4 visits and 2 ER visits. She has a recent miscarriage at 11 weeks (measuring 8 weeks) February 2018. She is O positive blood type. Patient reports: movement normal, other (Today she reports passage of clots when using the restroom. ), no new complaints, no loss of fluid, no vaginal bleeding, no contractions Objective - Vital Signs Vital Signs: Vital Signs - 12hr 01/11/19 01/11/19 00:47 05:56 Pulse Rate 73 62 Blood Pressure 108/55 125/67 - Exam Cervical Dilatation: 0 (bleeding at external os, clots present in vaginal introitus. ) - Labs Labs: Abnormal Labs 01/07/19 01/07/19 01/07/19 04:25 04:30 10:32 WBC 21.1 H RBC 3.59 L Hgb Hct 30.0 L MCHC RDW 15.4 H Seg Neuts % (Manual) 94.0 H Lymphocytes % (Manual) 3.0 L Seg Neutrophils # Man 19.8 H Lymphocytes # (Manual) 0.6 L Hemoglobin A1c < 4.0 L Crossmatch See Detail 01/07/19 01/07/19 01/08/19 13:40 18:18 00:49 WBC 13.1 H 14.4 H 13.7 H RBC 2.86 L 3.17 L 3.33 L Hgb 8.2 L 9.1 L 10.0 L Hct 23.9 L D 27.0 L 28.8 L MCHC 35 H RDW 15.4 H 15.5 H Seg Neuts % (Manual) Lymphocytes % (Manual) Seg Neutrophils # Man Lymphocytes # (Manual) Hemoglobin A1c Crossmatch 01/09/19 13:06 WBC 13.1 H RBC 3.41 L Hgb 10.0 L Hct 29.7 L MCHC RDW 15.6 H Seg Neuts % (Manual) Lymphocytes % (Manual) Seg Neutrophils # Man Lymphocytes # (Manual) Hemoglobin A1c Crossmatch
[2019-01-11] MEDS: LACTATED RINGERS 1,000 ML IV SCH ×2 (12:51→20:53)
[2019-01-11] MEDS: PEPCID PO SCH ×2 (12:58→20:57)
[2019-01-11] MEDS: COLACE PO SCH ×2 (12:58→20:56)
[2019-01-11] MEDS: FEOSOL PO SCH ×2 (12:58→20:57)
--- NOTE | 2019-01-11 14:05 | Ultrasound Report ---
ULTRASOUND OB LIMITED History: Vaginal bleeding Technique: Transabdominal ultrasound with Doppler interrogation. Gestation: Single Position: Cephalic Placenta: Anterior, left lateral Placental Grade: 1 Heart Rate: 149 BPM Comments: The oval heterogeneous structure in the lower uterine segment mentioned on 01/07/19 exam is again identified. This structure measures 6.3 x 4.3 x 3.6 cm on today's exam. This appears to have decreased in size since the previous exam in which it measured 11.9 x 9.8 x 10.2 cm. The etiology of this remains unclear.
--- NOTE | 2019-01-11 14:13 | Consultation ---
History of Present Illness Consult date: 01/11/19 Requesting physician: ALEXX MORSE History of present illness: Ms. Kincaid is a 23 year old para 0010 who presented to [facility] due to postcoital vaginal bleeding She bled into the bed and car. She has a history of vaginal bleeding on 4 previous episodes first at 12 weeks. Anemia S/P blood transfusion Hb increased from 8.2 to 10 S/P Steroids Suspected abruption See US Report - 1rst episode at 12 weeks ?? intercourse 2nd episode at 20 weeks [facility] admitted overnight and discharged (intercourse) 3rd episode at 22 weeks not admitted more like spotting (no intercourse) 4th episode (current admission) heavy bleeding more than period (08/12 now 11/12) occurred immediately after intercourse Her US 12/2018 revealed 2.8cm hyperechoic regions and US Done 01/07/19 - grade 3 placenta with 11.9x10 cm lower uterine segment mass. Based on clinical presentation hyperechoic mass is suspected placenta abruption. US Done 01/09/19 EFW at 44% US Done 01/11/19 - Verbal 6 cm ?? Clot in lower uterine segment - Oval heterogeneous 6.3 x 4.3 x 3.6 cm Patient passed a large amount of clots and blood while I was present this may have been the Oval heerogeneous material noted on US earlier today Past History Past Surgical History: other (right wrist surgery) Family/Genetic History: other (maternal aunt SLE) - Obstetrical History : 2 Medications and Allergies Allergies Allergy/AdvReac Type Severity Reaction Status Date / Time Penicillins Allergy Unknown Verified 12/08/18 01:24 Home Medications Medication Instructions Recorded Confirmed Last Taken Type Vit-Fe Fumar-FA [ 1 tab PO QDAY 01/07/19 01/07/19 01/06/19 11:00 History Vitamin] Active Meds: Active Medications Acetaminophen (Tylenol) 650 mg PO Q4H PRN PRN Reason: Pain, Mild (1-3) Last Admin: 01/07/19 14:32 Dose: 650 mg Documented by: Butorphanol Tartrate (Stadol) 1 mg IV Q2H PRN PRN Reason: Labor Pain Diphenhydramine HCl (Benadryl) 25 mg PO Q6H PRN PRN Reason: Itching Last Admin: 01/07/19 14:32 Dose: 25 mg Documented by: Docusate Sodium (Colace) 100 mg PO BID [facility] Last Admin: 01/11/19 12:58 Dose: 100 mg Documented by: Famotidine (Pepcid) 20 mg PO BID [facility] Last Admin: 01/11/19 12:58 Dose: 20 mg Documented by: Ferrous Sulfate (Feosol) 325 mg PO BID [facility] Last Admin: 01/11/19 12:58 Dose: 325 mg Documented by: Lactated Ringer's (Lactated Ringers) 1,000 mls @ 125 mls/hr IV DIRECT [facility] Last Admin: 01/11/19 12:51 Dose: 125 mls/hr Documented by: Magnesium Hydroxide (Milk Of Magnesia) 30 ml PO QDAY PRN PRN Reason: Constipation - Vital Signs Vital signs: Vital Signs Pulse Pulse Ox 73 100 01/07/19 01:52 01/07/19 01:52 Temp Pulse Resp BP Pulse Ox 97.1 F L 62 18 125/67 99 01/10/19 21:11 01/11/19 05:56 01/10/19 16:44 01/11/19 05:56 01/08/19 16:22 Results Result Diagrams: 01/09/19 13:06 All other labs normal. Assessment and Plan 1. [place] IUP at 24 2/7 weeks 2. Vag Bleeding - Suspected Abruption - Passing Large clots today 01/11/19 (Her US 12/2018 revealed 2.8cm hyperechoic regions and current US a grade 3 placenta with 11.9x10cm lower uterine segment mass. Verbal 6 cm ?? Clot in lower uterine segment - Oval heterogeneous 6.3 x 4.3 x 3.6 cm Based on clinical presentation hyperechoic mass is suspected placenta abruption) 3. H/O post coital bleeding 4. Anemia Recommendations: 1. S/P Steroids 2. Continued in house conservative management 3. See US reports - May have passed remainder of clot - Would repeat US tomorrow to see if clot passed - If no further bleeding for 48 Hours would allow discharge 4. NICU consult if not done 5. Seq leg compressors 6. Drug screen was neg 7. Repeat CBC in am 8. If bleeding increases would give Mg for neuroprophylaxis if delivery could be anticipated 9. Told patient to avoid intercourse 10. Iron BID 11. Type and cross for 2 additional units (hold) should bleeding increase 12. Would sign consent for C/S if bleeding increases or compromise
[2019-01-11 17:04] LABS: Hematocrit 30.2 % (30.3-42.9); Hemoglobin 10.5 gm/dl (10.1-14.3); Mean Corpuscular HGB Conc 35 % (30-34); Mean Corpuscular Volume 86 fl (79-97); Platelet Count 198 K/mm3 (140-440); Red Cell Distribution Width 15.6 % (13.2-15.2)
[2019-01-12] MEDS: LACTATED RINGERS 1,000 ML IV SCH ×3 (03:08→18:17)
--- NOTE | 2019-01-12 09:38 | Consultation ---
History of Present Illness Consult date: 01/12/19 Requesting physician: EMILY DIA Reason for consult: other (vaginal bleeding) History of present illness: As you are likely aware this is a 23 year old para 0010 who presented to [facility] due to postcoital vaginal bleeding since 11 pm last week. She bled into the bed and car. She has a history of vaginal bleeding on 4 previous episodes first at 12 weeks. Her US 12/2018 revealed 2.8cm hyperechoic regions and today a grade 3 placenta with 11.9x10 cm lower uterine segment mass. Based on clinical presentation hyperechoic mass is suspected placenta abruption. She has had inconsistent care at [facility] with 4 visits and 2 ER visits. She has a recent miscarriage at 11 weeks (measuring 8 weeks) February 2018. At present the patient describes ongoing bleeding. She denies leakage of fluid and has not had regular contractions. +FM. Review of Systems: Denies headache, blurred vision, scotomata, RUQ pain, dysuria, or leg pain PAST OBSTETRICAL HISTORY: See note in patients chart. SAB x 1 [facility] [place] ULTRASOUND: See ultrasound findings in patients chart. LAB FINDNGS: See notes in patients chart. Past History Past Surgical History: other (right wrist surgery) Family/Genetic History: other (maternal aunt SLE) - Obstetrical History : 2 Medications and Allergies Allergies Allergy/AdvReac Type Severity Reaction Status Date / Time Penicillins Allergy Unknown Verified 12/08/18 01:24 Home Medications Medication Instructions Recorded Confirmed Last Taken Type Vit-Fe Fumar-FA [ 1 tab PO QDAY 01/07/19 01/07/19 01/06/19 11:00 History Vitamin] Active Meds: Active Medications Acetaminophen (Tylenol) 650 mg PO Q4H PRN PRN Reason: Pain, Mild (1-3) Last Admin: 01/07/19 14:32 Dose: 650 mg Documented by: Butorphanol Tartrate (Stadol) 1 mg IV Q2H PRN PRN Reason: Labor Pain Diphenhydramine HCl (Benadryl) 25 mg PO Q6H PRN PRN Reason: Itching Last Admin: 01/07/19 14:32 Dose: 25 mg Documented by: Docusate Sodium (Colace) 100 mg PO BID [facility] Last Admin: 01/11/19 20:56 Dose: 100 mg Documented by: Famotidine (Pepcid) 20 mg PO BID [facility] Last Admin: 01/11/19 20:57 Dose: 20 mg Documented by: Ferrous Sulfate (Feosol) 325 mg PO BID [facility] Last Admin: 01/11/19 20:57 Dose: 325 mg Documented by: Lactated Ringer's (Lactated Ringers) 1,000 mls @ 125 mls/hr IV DIRECT [facility] Last Admin: 01/12/19 03:08 Dose: 125 mls/hr Documented by: Magnesium Hydroxide (Milk Of Magnesia) 30 ml PO QDAY PRN PRN Reason: Constipation - Vital Signs Vital signs: Vital Signs Pulse Pulse Ox 73 100 01/07/19 01:52 01/07/19 01:52 Temp Pulse Resp BP Pulse Ox 96.8 F L 71 18 119/73 99 01/12/19 08:45 01/12/19 08:46 01/12/19 03:08 01/12/19 08:46 01/12/19 03:08 Results Result Diagrams: 01/11/19 16:30 Abnormal lab results 01/11/19 Range/Units 16:30 WBC 11.3 H (4.5-11.0) K/mm3 RBC 3.50 L (3.65-5.03) M/mm3 Hct 30.2 L (30.3-42.9) % MCHC 35 H (30-34) % RDW 15.6 H (13.2-15.2) % All other labs normal. Assessment and Plan ASSESSMENT As stated above this is a patient at 24.4 weeks admitted with vaginal bleeding. Rule out (slow) chronic abruption Previous ultrasound with posterior and suggestion retroplacental bleeding Chronic abruptio placenta RECOMMENDATIONS 1. Continue inpatient observation. 2. Perform repeat ultrasound assessment today. 3. Continue pad counts 4. We agree with steroids to enhance lung maturation. 5. We reviewed the warning signs of labor with this patient today. 6. [facility] to follow-up Thank you for allowing us to participate in the care of this patient. We look forward to the opportunity to assist in her continued management. If you have any questions, please contact our office at [phone]
[2019-01-12] MEDS: COLACE PO SCH ×2 (10:08→22:10)
[2019-01-12] MEDS: FEOSOL PO SCH ×2 (10:08→22:10)
[2019-01-12] MEDS: PEPCID PO SCH ×2 (10:09→22:11)
--- NOTE | 2019-01-12 17:12 | Progress Note ---
Assessment and Plan - Patient Problems (1) 23 weeks gestation of Current Visit: Yes Status: Acute (2) Placental abruption Onset Date: 01/09/19 Current Visit: Yes Status: Acute Qualifiers: Trimester: second trimester Qualified Code(s): O45.92 - Premature separation of placenta, unspecified, second trimester (3) Vaginal bleeding affecting early Current Visit: Yes Status: Acute (4) Anemia due to acute blood loss Current Visit: Yes Status: Acute Plan to address problem: s/p 2 units pRBCs. H/H stable Will monitor CBC and replace blood products per mass transfusion protocol as necessary. Continue PO iron (5) 24 weeks gestation of Onset Date: 01/09/19 Current Visit: Yes Status: Acute Plan to address problem: s/p steroids for lung maturity Mild bleeding with occasional passage of clots persists. Awaiting 48hr with no vaginal bleeding and will consider discharge. Continue bedrest with bedpan. Subjective - Subjective Principal diagnosis: IUP @ 24 2/7 weeks; Suspected abruption Interval history: 23yo at 23 6/7weeks presents with vaginal bleeding since 11pm that began during sexual intercourse. She bled into the bed and car. She has a history of vaginal bleeding on 4 previous episodes first at 12 weeks. Her US 12/2018 revealed 2.8cm hyperechoic regions and today a grade 3 placenta with 11.9x10cm lower uterine segment mass. Based on clinical presentation hyperechoic mass is suspected placenta abruption. She has had inconsistent care at [facility] with 4 visits and 2 ER vis its. She has a recent miscarriage at 11 weeks (measuring 8 weeks) February 2018. She is O positive blood type. Patient reports: movement normal, other (Today she reports passage of clots when using the restroom. ), no new complaints, no loss of fluid, no vaginal bleeding, no contractions Objective - Vital Signs Vital Signs: Vital Signs - 12hr 01/12/19 01/12/19 08:45 08:46 Temperature 96.8 F L Pulse Rate 71 Blood Pressure 119/73 - Labs Labs: Abnormal Labs 01/07/19 01/07/19 01/07/19 04:25 04:30 10:32 WBC 21.1 H RBC 3.59 L Hgb Hct 30.0 L MCHC RDW 15.4 H Seg Neuts % (Manual) 94.0 H Lymphocytes % (Manual) 3.0 L Seg Neutrophils # Man 19.8 H Lymphocytes # (Manual) 0.6 L Hemoglobin A1c < 4.0 L Crossmatch See Detail 01/07/19 01/07/19 01/08/19 13:40 18:18 00:49 WBC 13.1 H 14.4 H 13.7 H RBC 2.86 L 3.17 L 3.33 L Hgb 8.2 L 9.1 L 10.0 L Hct 23.9 L D 27.0 L 28.8 L MCHC 35 H RDW 15.4 H 15.5 H Seg Neuts % (Manual) Lymphocytes % (Manual) Seg Neutrophils # Man Lymphocytes # (Manual) Hemoglobin A1c Crossmatch 01/09/19 01/11/19 13:06 16:30 WBC 13.1 H 11.3 H RBC 3.41 L 3.50 L Hgb 10.0 L Hct 29.7 L 30.2 L MCHC 35 H RDW 15.6 H 15.6 H Seg Neuts % (Manual) Lymphocytes % (Manual) Seg Neutrophils # Man Lymphocytes # (Manual) Hemoglobin A1c Crossmatch
--- NOTE | 2019-01-12 22:37 | Ultrasound Report ---
PROCEDURE: US OB FOLLOW UP TECHNIQUE: Limited ultrasound of the abdomen HISTORY: please follow up on previous object identified COMPARISONS: Ultrasound pelvis 06/13/2019, 01/09/2018 FINDINGS: The previously seen area in the lower uterine segment to the left of midline measures 4.0 x 3.0 x 2.7 cm (previously 6.3 x 4.3 x 3.6 cm). Hypoechoic area seen within the midportion of the placenta is identified anteriorly is not identified today. There is also a hypoechoic septated cystic area in the right fundal portion of the uterus along the g estational sac measuring 4.5 x 1.5 x 3.8 cm. This may be associated with an amniotic band. It was not identified previously. LMP: 07/24/2018 Clinical Age: 24 W 4D US Age (average) = 23 W 6 D EFW (BPD,HC,AC,FL) = 602 g +/- 89 g (10lbs.5oz. +/-3oz.) LMP EDC 04/30/2019 US EDC 05/05/2019 CI 81.2 (Range 74 To 83) HC/AC 1.18 (Range 1.05 To 1.21) FL/BPD 71.5 (Range 69.9 To 85.9) FL/HC 19.8 (Range 16.5 To 23.1) FL/AC 23.4 (Range 20 To 24) BPD 6.0 cm corresponding to age 24 weeks 3 days HC 21.6 cm corresponding to age 23 weeks 4 days AC 18.2 cm corresponding to age 23 weeks 1 day FL 5.3 cm corresponding to age 24 weeks 0 days Presentation: Cephalic Activity: Monitored Placental location: Left lateral aspect Placental grade: 1 Cardiac motion: 152 BPM using M-mode doppler Amniotic Fluid Volume: Adequate LAURA: 10.9 cm Cervical Length: 4.4 cm IMPRESSION: 1. Single intrauterine viable with an approximate age of 23 weeks 6 days. 2. Hypoechoic area seen in the lower uterine segment to the left midline is slightly smaller than see n previously 3. Septated cystic focus along the right side of the fundal portion of uterus on the gestational sac is new and may represent a subchorionic hemorrhage or amniotic band 4. Hypoechoic area in the midportion placenta seen previously is not identified today This document is electronically signed by Starr Joel MD., January 12 2019 10:35:26 PM ET
[2019-01-13] MEDS: FEOSOL PO SCH ×3 (10:56→23:03)
[2019-01-13] MEDS: COLACE PO SCH ×2 (10:56→23:04)
[2019-01-13] MEDS: PEPCID PO SCH ×3 (10:57→23:03)
--- NOTE | 2019-01-13 12:36 | Consultation ---
History of Present Illness Consult date: 01/13/19 Reason for consult: other (vaginal bleeding) History of present illness: Ms. Kincaid is a 23 yo, , admitted to [facility] due to postcoital vaginal bleeding. She has had 4 previous vaginal bleeding episodes s/p sex during this . Vaginal bleeding noted today once patient OOB to urinate- bright red in color, no clots appreciated. Ultrasound from 01/12/19 showed improvement in hyperchoeic area- 4.0 x 3.0 x 2.7 ( previously 6.3 x 4.3 x 3.6)- Suspected Chronic Placental Abruption. She denies contractions, constant pain, and leaking of fluid. She admits positive movements. She is s/p Betamethasone x 2. Past History Past Surgical History: other (right wrist surgery) Family/Genetic History: other (maternal aunt SLE) - Obstetrical History : 2 Medications and Allergies Allergies Allergy/AdvReac Type Severity Reaction Status Date / Time Penicillins Allergy Unknown Verified 12/08/18 01:24 Home Medications Medication Instructions Recorded Confirmed Last Taken Type Vit-Fe Fumar-FA [ 1 tab PO QDAY 01/07/19 01/07/19 01/06/19 11:00 History Vitamin] Active Meds: Active Medications Acetaminophen (Tylenol) 650 mg PO Q4H PRN PRN Reason: Pain, Mild (1-3) Last Admin: 01/07/19 14:32 Dose: 650 mg Documented by: Butorphanol Tartrate (Stadol) 1 mg IV Q2H PRN PRN Reason: Labor Pain Diphenhydramine HCl (Benadryl) 25 mg PO Q6H PRN PRN Reason: Itching Last Admin: 01/07/19 14:32 Dose: 25 mg Documented by: Docusate Sodium (Colace) 100 mg PO BID [facility] Last Admin: 01/13/19 10:56 Dose: 100 mg Documented by: Famotidine (Pepcid) 20 mg PO BID [facility] Last Admin: 01/13/19 10:57 Dose: 20 mg Documented by: Ferrous Sulfate (Feosol) 325 mg PO BID [facility] Last Admin: 01/13/19 10:56 Dose: 325 mg Documented by: Lactated Ringer's (Lactated Ringers) 1,000 mls @ 125 mls/hr IV DIRECT [facility] Last Admin: 01/12/19 18:17 Dose: 125 mls/hr Documented by: Magnesium Hydroxide (Milk Of Magnesia) 30 ml PO QDAY PRN PRN Reason: Constipation Review of Systems Constitutional: other (denies fever, fatigue) Eyes: other (denies visual disturbances) Ears, nose, mouth and throat: deferred Cardiovascular: other (denies chest pain, palpitations, edema) Respiratory: other (denies sob, wheezing, coughing) Breasts: deferred Gastrointestinal: other (denies diarrhea, constipation, nausea) Genitourinary: vaginal bleeding, other (denies leaking of fluid and contractions ) Rectal Exam: deferred Integumentary: deferred Neurological: other (denies headaches) - Vital Signs Vital signs: Vital Signs Pulse Pulse Ox 73 100 01/07/19 01:52 01/07/19 01:52 Temp Pulse Resp BP Pulse Ox 97.5 F L 74 18 126/63 99 01/13/19 09:18 01/13/19 12:21 01/13/19 09:18 01/13/19 12:21 01/12/19 03:08 - Physical Exam Breasts: Positive: deferred Cardiovascular: Regular rate, Normal S1, Normal S2 Lungs: Positive: Clear to auscultation, Normal air movement Abdomen: Positive: soft, other (gravid, nontender) Results Result Diagrams: 01/11/19 16:30 All other labs normal. Assessment and Plan A- [place] IUP at 24.5 weeks gestation Current Vaginal bleeding Improvement in hyperchoeic area- 01/12/19, 4.0 x 3.0 x 2.7 ( improved from 6.3 x 4.3 x 3.6 on 01/11/19)- Suspected Chronic Placental Abruption Positive movements Denies LOF and contractions BP- stable Labs- stable P- Continue with current plan of care Repeat ultrasound tomorrow Monitor pad counts for vaginal bleeding. Monitor for PTL symptoms Magnesium Sulfate as indicated CBC as indicated For additional questions or concerns, please contact morteza DEL ROSARIO MD. Thank you.
--- NOTE | 2019-01-13 14:09 | Progress Note ---
Assessment and Plan - Patient Problems (1) 24 weeks gestation of Onset Date: 01/09/19 Current Visit: Yes Status: Acute (2) Placental abruption Onset Date: 01/09/19 Current Visit: Yes Status: Acute Qualifiers: Trimester: second trimester Qualified Code(s): O45.92 - Premature separation of placenta, unspecified, second trimester Subjective - Subjective Date of service: 01/13/19 Principal diagnosis: IUP @ 24 5/7 weeks; Suspected abruption Interval history: Pt is a 23yo HF at 24 5/7weeks who presented with vaginal bleeding 3 days ago that begun during sexual intercourse. She bled into the bed and car. She has a history of vaginal bleeding on 4 previous episodes first at 12 weeks. Her US 12/2018 revealed 2.8cm hyperechoic regions and a grade 3 placenta with 11.9x10cm lower uterine segment mass. Based on clinical presentation hyperechoic mass was suspected placenta abruption. She has had inconsistent care at [facility] with 4 visits and 2 ER vi sits. She has a recent miscarriage at 11 weeks (measuring 8 weeks) February 2018. Since admission she passed large clots and was transfused 2 units of blood. She has completed her steroids, and repeat Ob u/s showed no evidence of placental abruption. Vaginal bleeding noted today once patient OOB to urinate- bright red in color, no clots appreciated. Ultrasound from 01/12/19 showed improvement in hyperchoeic area- 4.0 x 3.0 x 2.7 ( previously 6.3 x 4.3 x 3.6)- Suspected Chronic Placental Abruption. She denies contractions, constant pain, and leaking of fluid. She admits positive movements. Patient reports: movement normal, other (Today she reports passage of clots when using the restroom. ), no new complaints, no loss of fluid, no vaginal bleeding, no contractions Objective - Vital Signs Vital Signs: Vital Signs - 12hr 01/13/19 01/13/19 01/13/19 09:18 09:19 12:21 Temperature 97.5 F L Pulse Rate 67 67 74 Respiratory 18 Rate Blood Pressure 123/59 126/63 Blood Pressure 123/59 [Left] - Exam Abdomen: Present: normal appearance, soft - Labs Labs: Abnormal Labs 01/07/19 01/07/19 01/07/19 04:25 04:30 10:32 WBC 21.1 H RBC 3.59 L Hgb Hct 30.0 L MCHC RDW 15.4 H Seg Neuts % (Manual) 94.0 H Lymphocytes % (Manual) 3.0 L Seg Neutrophils # Man 19.8 H Lymphocytes # (Manual) 0.6 L Hemoglobin A1c < 4.0 L Crossmatch See Detail 01/07/19 01/07/19 01/08/19 13:40 18:18 00:49 WBC 13.1 H 14.4 H 13.7 H RBC 2.86 L 3.17 L 3.33 L Hgb 8.2 L 9.1 L 10.0 L Hct 23.9 L D 27.0 L 28.8 L MCHC 35 H RDW 15.4 H 15.5 H Seg Neuts % (Manual) Lymphocytes % (Manual) Seg Neutrophils # Man Lymphocytes # (Manual) Hemoglobin A1c Crossmatch 01/09/19 01/11/19 13:06 16:30 WBC 13.1 H 11.3 H RBC 3.41 L 3.50 L Hgb 10.0 L Hct 29.7 L 30.2 L MCHC 35 H RDW 15.6 H 15.6 H Seg Neuts % (Manual) Lymphocytes % (Manual) Seg Neutrophils # Man Lymphocytes # (Manual) Hemoglobin A1c Crossmatch
--- NOTE | 2019-01-13 14:18 | Consultation ---
History of Present Illness Consult date: 01/07/19 Requesting physician: EMILY DIA Reason for consult: prematurity, other (Placental abruption and bradycardia) [place] Documentation - information: Height 5 ft 2 in Medications and Allergies Allergies Allergy/AdvReac Type Severity Reaction Status Date / Time Penicillins Allergy Unknown Verified 12/08/18 01:24 Home Medications Medication Instructions Recorded Confirmed Last Taken Type Vit-Fe Fumar-FA [ 1 tab PO QDAY 01/07/19 01/07/19 01/06/19 11:00 History Vitamin] Active Meds: Active Medications Acetaminophen (Tylenol) 650 mg PO Q4H PRN PRN Reason: Pain, Mild (1-3) Last Admin: 01/07/19 14:32 Dose: 650 mg Documented by: Butorphanol Tartrate (Stadol) 1 mg IV Q2H PRN PRN Reason: Labor Pain Diphenhydramine HCl (Benadryl) 25 mg PO Q6H PRN PRN Reason: Itching Last Admin: 01/07/19 14:32 Dose: 25 mg Documented by: Docusate Sodium (Colace) [address] [facility] Last Admin: 01/13/19 10:56 Dose: 100 mg Documented by: Famotidine (Pepcid) [address] [facility] Last Admin: 01/13/19 10:57 Dose: 20 mg Documented by: Ferrous Sulfate (Feosol) [address] [facility] Last Admin: 01/13/19 10:56 Dose: 325 mg Documented by: Lactated Ringer's (Lactated Ringers) 1,000 mls @ 125 mls/hr IV DIRECT [facility] Last Admin: 01/12/19 18:17 Dose: 125 mls/hr Documented by: Magnesium Hydroxide (Milk Of Magnesia) 30 ml PO QDAY PRN PRN Reason: Constipation Exam Vital Signs Pulse Pulse Ox 73 100 01/07/19 01:52 01/07/19 01:52 Temp Pulse Resp BP Pulse Ox 97.5 F L 74 18 126/63 99 01/13/19 09:18 01/13/19 12:21 01/13/19 09:18 01/13/19 12:21 01/12/19 03:08 Results - Laboratory Findings 01/11/19 16:30 Assessment and Plan - Patient Problems (1) 23 weeks gestation of Current Visit: Yes Status: Acute Plan to address problem: Ms Kincaid is currently admitted at 23 weeks and 6 days with suspected placental abruption and bradycardia Ultrasound done today showed an estimated weight of 600grams. Ms Kincaid wants full resuscitation in case she delivers at this gestational age The following issues were discussed with Ms Kincaid 1. Resuscitation by the NICU team at delivery. Resuscitaion will likely include intubation and placement on mechanical ventilation 2. Complications from prematurity which include, but not limited to, Intraventricular Hemorrhage, Retinopathy of prematurity, Patent ductus arteriosus, Total parenteral nutrition, Feeding difficulties, necritizing enterocolitis, Sepsis and Jaundice 3. Mortality and Morbidity at this gestational age using the NICHD premie calculator was also discussed. Mortality at this gestational age with steroids is about 40%. Survival without moderate to severe neurodevelopmental impairment is about 34% Ms Kincaid expressed uderstading and all questions were answered. She promised to contact NICU in future if she has further questions
[2019-01-13] MEDS: TYLENOL PO PRN (23:11)
[2019-01-13] MEDS: LACTATED RINGERS 1,000 ML IV SCH (23:18)
[2019-01-14] MEDS: STADOL IV PRN ×3 (03:30→05:27)
[2019-01-14] MEDS: LACTATED RINGERS 1,000 ML IV SCH (08:09)
[2019-01-14] MEDS ORDERED: PITOCin/NS 20 UNIT/1000ML DRIP 20,000 MILLIUNITS/1,000 ML BAG IV ONE ×2 (08:33→10:59)
--- NOTE | 2019-01-14 09:00 | Event Note ---
I resumed call this morning at 8am and was called to the attention of concern for placental abruption and uterine contractions in Room 2002 by nurse Larisa RN. The NST was reviewed with nurse Larisa RN and tachycardia baseline 150 with accels to 190s and variable decelerations to 120. Upon my entering the room the nurses were searching for heart tones with doppler and mother was screaming out with abdominal pain. I then counseled mother on recommendation for primary classical based on breech presentation in , placental abruption and distress. The csection was called and NICU notified. Upon my re-entering the room the membranes were bulging and noted at +4 position and blood was noted in the sac. Upon vaginal exam p arts (footling breech) was noted in the vaginal introitus. Mother then screamed out, pushed once and the entire fetus was delivered en caul into my hand with maternal expulsive forces. The sac was ruptured cord clamped and cut and fetus taken to awaiting NICU staff to the bed warmer.
[2019-01-14] MEDS ORDERED: PHENERGAN PO PRN (09:20)
[2019-01-14] MEDS ORDERED: TYLENOL PO PRN (09:20)
[2019-01-14] MEDS ORDERED: LANSINOH TP PRN (09:20)
[2019-01-14] MEDS ORDERED: TUCKS PAD TP PRN (09:20)
[2019-01-14] MEDS ORDERED: ZOFRAN IV PRN (09:20)
[2019-01-14] MEDS ORDERED: DULCOLAX PR PRN (09:20)
[2019-01-14] MEDS ORDERED: MILK OF MAGNESIA PO PRN (09:20)
[2019-01-14] MEDS ORDERED: BENADRYL PO PRN (09:20)
--- NOTE | 2019-01-14 09:28 | Procedure Note ---
OB Delivery Note - Delivery Surgeon: EMILY DIA Estimated blood loss: <100cc - Vaginal Intrapartum events: labor-<37 weeks, abruption Delivery induction: none Delivery monitor: external FHT Route of delivery: breech extraction Delivery placenta: spontaneous Episiotomy: none Delivery laceration: none Delivery comments: I resumed call this morning at 8am and was called to the attention of concern for placental abruption and uterine contractions in Room 2002 by nurse Larisa RN. The NST was reviewed with nurse Larisa RN and tachycardia baseline 150 with accels to 190s and variable decelerations to 120. Upon my entering the room the nurses were searching for heart tones with doppler and mother was screaming out with abdominal pain. I then counseled mother on recommendation for primary classical based on breech presentation in infant, placental abruption and distress. The csection was called and NICU notified. Upon my re-entering the room the membranes were bulging and noted to be protruding from the vagina. Blood was noted in the sac. Upon vaginal exam parts (footling breech) was noted in the vaginal introitus. Mother then screamed out, pushed once and the entire fetus was delivered en caul into my hand with maternal expulsive forces. The sac was ruptured, cord clamped and cut and fetus removed from sac and taken to awaiting NICU staff to the bed warmer. - Infant A Gender: Female ( infant to NICU)
[2019-01-14] MEDS ORDERED: SODIUM CHLORIDE FLUSH SYRINGE 10 ML IV NR (10:00)
[2019-01-14] MEDS: IBUPROFEN PO SCH (17:45)
[2019-01-14 21:34] LABS: Hematocrit 27.7 % (30.3-42.9); Hemoglobin 9.4 gm/dl (10.1-14.3)
[2019-01-15] MEDS: COLACE PO SCH ×3 (00:57→22:00)
[2019-01-15] MEDS: FEOSOL PO SCH ×3 (01:02→22:00)
[2019-01-15] MEDS: PEPCID PO SCH ×3 (01:02→22:00)
[2019-01-15] MEDS: IBUPROFEN PO SCH ×4 (04:32→22:00)
--- NOTE | 2019-01-15 12:14 | Progress Note ---
Assessment and Plan A: PPD#1 s/p vaginal delivery at 24w6d in NICU Asymptomatic anemia VSS P: Routine PP orders Anticipate discharge 01/16/19 Subjective - Subjective Date of service: 01/15/19 Principal diagnosis: vaginal delivery @ 24 6/7 weeks; Suspected abruption Interval history: See H&P and delivery note Patient reports: appetite normal, voiding normally, pain well controlled, flatus, ambulating normally : in NICU (Prematurity 24w6d, pt pumping in effort to breastfeed) Objective - Vital Signs Latest vital signs: Vital Signs Temp Pulse Resp BP Pulse Ox 01/15/19 00:00 98.4 F 01/14/19 23:24 68 114/64 97 01/14/19 17:17 98.0 F 94 H 20 103/59 97 Intake and Output 01/14/19 01/15/19 01/15/19 23:59 07:59 15:59 Intake Total 600 240 Balance 600 240 Intake: Oral 360 240 Intake, Free Water 240 Other: Total, Intake Amount 360 240 # Voids Void 1 - Exam Breasts: Present: normal Cardiovascular: Present: Regular rate, Normal S1, Normal S2, No murmurs Lungs: Present: Clear to auscultation, Normal air movement Abdomen: Present: normal appearance, soft, normal bowel sounds. Absent: distention, tenderness Vulva: both: normal Uterus: Present: firm, fundal height below umbilicus (-2) Extremities: Present: normal Deep Tendon Reflex Grade: Normal +2 - Labs Labs: Abnormal lab results 01/14/19 Range/Units 20:57 Hgb 9.4 L (10.1-14.3) gm/dl Hct 27.7 L (30.3-42.9) %
--- NOTE | 2019-01-15 12:17 | Discharge Summary ---
< - Last Filed: 01/15/19 12:14> Providers - Providers Date of Admission: 01/07/19 01:53 Date of discharge: 01/16/19 Attending physician: ALEXX MORSE MD 01/07/19 10:43 Consult to Physician [CONS] Stat Comment: Please scholarship counselor on outcome, steriods. Consulting Provider: MICHELLE CORRIGAN Physician Instructions: Reason For Exam: 23 6/7wks placental abruption, bradycardia 01/07/19 10:51 Consult to Physician [CONS] Stat Comment: Please scholarship counselor on outcome, recommendations Consulting Provider: TIKI JUNIOR Physician Instructions: Reason For Exam: 23 6/7weeks placental abruption Primary care physician: ALEXX MORSE MD Hospitalization Reason for admission: IUP - ( at 24w6d), vaginal bleeding Delivery: Procedure details: See delivery note Episiotomy: none Laceration: none Other procedures: none complications: none Discharge diagnosis: delivery baby: female (NICU) Condition at discharge: Good Disposition: DC-01 TO HOME OR SELFCARE Plan - Provider Discharge Summary Activity: routine, no sex for 6 weeks, no heavy lifting 4 weeks, no strenuous exercise Diet: routine Instructions: routine Additional instructions: [] Smoking cessation referral if applicable(refer to patient education folder for contact #) [] Refer to [facility]'s [facility] Booklet Call your doctor immediately for: * Fever > 100.5 * Heavy vaginal bleeding ( >1 pad per hour) * Severe persistent headache * Shortness of breath * Reddened, hot, painful area to leg or breast * Drainage or odor from incision. * Keep incision clean and dry at all times and follow doctor's instructions regarding bathing/showering - Follow up plan Follow up: ALEXX MORSE MD [Primary Care Provider] - 6 Weeks Forms: [facility] Discharge Summary, Discharge Signature Page <EMILY DIA - Last Filed: 01/16/19 13:55> Providers - Providers Date of Admission: 01/07/19 01:53 Attending physician: ALEXX MORSE MD 01/07/19 10:43 Consult to Physician [CONS] Stat Comment: Please scholarship counselor on outcome, steriods. Consulting Provider: MICHELLE CORRIGAN Physician Instructions: Reason For Exam: 23 6/7wks placental abruption, bradycardia 01/07/19 10:51 Consult to Physician [CONS] Stat Comment: Please scholarship counselor on outcome, recommendations Consulting Provider: TIKI JUNIOR Physician Instructions: Reason For Exam: 23 6/7weeks placental abruption Primary care physician: ALEXX MORSE MD Hospitalization Pertinent studies: Laboratory Results - last 72 hr 01/14/19 20:57 Hgb 9.4 L Hct 27.7 L Hospital course: 23yo at 23 6/7 wks admitted for management of placental abruption. She went into labor and went on to deliver a viable female that is th e NICU. She received 2 units packed red blood cells transfusion. Her course was benign and she was discharged home in stable condition. - Discharge Diagnoses (1) 23 weeks gestation of Status: Acute (2) Placental abruption Status: Acute Qualifiers: Trimester: second trimester Qualified Code(s): O45.92 - Premature separation of placenta, unspecified, second trimester (3) Vaginal bleeding affecting early Status: Acute (4) Anemia due to acute blood loss Status: Acute Comment: s/p 2 units packed red blood cell transfusion Asymptomatic. Discharge home on supplemental iron therapy. (5) 24 weeks gestation of Status: Acute Plan - Provider Discharge Summary Additional instructions: [] Smoking cessation referral if applicable(refer to patient education folder for contact #) [] Refer to [facility]'s [facility] Booklet Call your doctor immediately for: * Fever > 100.5 * Heavy vaginal bleeding ( >1 pad per hour) * Severe persistent headache * Shortness of breath * Reddened, hot, painful area to leg or breast * Drainage or odor from incision. * Keep incision clean and dry at all times and follow doctor's instructions regarding bathing/showering
[2019-01-16] MEDS: IBUPROFEN PO SCH (04:00)
[2019-01-16] MEDS ORDERED: AFLURIA QUAD 2018-2019 SYRINGE IM ONE (12:00)
[2019-01-16 13:28] VITALS: BP 134/67
[2019-01-16] MEDS: PEPCID PO SCH (17:57)
[2019-01-16] MEDS: COLACE PO SCH (17:57)
[2019-01-16] MEDS: FEOSOL PO SCH (17:57)
== END 2019-01-16 13:00 | disposition home or self-care (01) | DRG 805 ==
LOC: TRG 01:48 → LD 01:48 → TRG 01:53 → OB 01-14 11:43
PROVIDERS: ADMIT Obstetrics & Gynecology; ATTEND Obstetrics & Gynecology
PROC: 30233N1 Transfusion of Nonautologous Red Blood Cells into Peripheral Vein, Percutaneous Approach (ICD-10-PCS; principal; 2019-01-07)
PROC: 10E0XZZ Delivery of Products of Conception, External Approach (ICD-10-PCS; 2019-01-14)
DX: O45.92 Premature separation of placenta, unspecified, second trimester (principal); O60.12X0 Preterm labor second trimester with preterm delivery second trimester, not applicable or unspecified; Z37.0 Single live birth; D62 Acute posthemorrhagic anemia; Z3A.23 23 weeks gestation of pregnancy; Z88.0 Allergy status to penicillin; O76 Abnormality in fetal heart rate and rhythm complicating labor and delivery; O32.8XX0 Maternal care for other malpresentation of fetus, not applicable or unspecified; O99.02 Anemia complicating childbirth
CPT/HCPCS: 36415; 76805; 76815; 76816; 80307; 81001; 83036; 84443; 85007; 85014; 85018; 85025; 85027; 85460; 85610; 85660; 85730; 86592; 86850; 86900; 86901; 86920; 87806; 88305; 90686; G0378; J0595; J1100; J2590; J7040; J7120; P9016

== ENCOUNTER 2020-09-01 12:39 | Outpatient (CLI) | payer SELFPAY ==
[2020-09-01 13:59] LABS: Bacteria,Urine 2+ /HPF (Negative); Bilirubin,Urine NEG (Negative); Blood,Urine NEG (Negative); Color,Urine Yellow (Yellow); Mucus,Urine 2+ /HPF; Urobilinogen,Urine < 2.0 mg/dL (<2.0)
[2020-09-01 14:18] LABS: Hematocrit 28.4 % (30.3-42.9); Mean Corpuscular HGB Conc 35 % (30-34); Mean Corpuscular Volume 83 fl (79-97); Platelet Count 249 K/mm3 (140-440); Red Blood Count 3.43 M/mm3 (3.65-5.03); Red Cell Distribution Width 14.6 % (13.2-15.2)
[2020-09-01 14:41] LABS: Alanine Aminotransferase 18 units/L (7-56); Uric Acid 5.7 mg/dL (3.5-7.6)
[2020-09-01 16:10] VITALS: BP 130/82
--- NOTE | 2020-09-01 18:34 | Ultrasound Report ---
ULTRASOUND OBSTETRIC LIMITED INDICATION / CLINICAL INFORMATION: r/o placental abruption. Clinical Gestational Age (GA): 25 weeks. 3 days COMPARISON: 01/21/2019 FINDINGS: Living Twin intrauterine . Twin A: HEART RATE (beats per minute): 129 AMNIOTIC FLUID = normal PRESENTATION: Cephalic. ADDITIONAL FINDINGS: No evidence of lifting or separation of the placenta. Twin B: HEART RATE (beats per minute): 143 AMNIOTIC FLUID = normal PRESENTATION: Transverse. The head is to the maternal left side. ADDITIONAL FINDINGS: No evidence of lifting or separation of the placenta. IMPRESSION: 1. Viable twin intrauterine . 2. No evidence of placental abruption. Signer Name: Jem White MD Signed: 09/01/2020 6:30 PM Workstation Name: [id number]
== END 2020-09-01 16:34 | disposition home or self-care (01) ==
LOC: TRG 12:39 → APU 12:42 → TRG 16:34
PROVIDERS: ATTEND Obstetrics & Gynecology
DX: O13.2 Gestational [pregnancy-induced] hypertension without significant proteinuria, second trimester (principal); Z3A.25 25 weeks gestation of pregnancy
CPT/HCPCS: 36415; 59025; 76815; 81001; 82565; 83615; 84450; 84460; 84550; 85027

== ENCOUNTER 2020-09-18 11:31 | Outpatient (CLI) | payer OTHER ==
[2020-09-18 12:55] LABS: Bacteria,Urine 1+ /HPF (Negative); Bilirubin,Urine NEG (Negative); Blood,Urine NEG (Negative); Color,Urine Yellow (Yellow); Mucus,Urine FEW /HPF; Urobilinogen,Urine < 2.0 mg/dL (<2.0)
[2020-09-18 13:21] LABS: Hematocrit 28.8 % (30.3-42.9); Hemoglobin 10.2 gm/dl (10.1-14.3); Mean Corpuscular HGB Conc 35 % (30-34); Mean Corpuscular Volume 83 fl (79-97); Platelet Count 253 K/mm3 (140-440); Red Blood Count 3.46 M/mm3 (3.65-5.03); Red Cell Distribution Width 16.1 % (13.2-15.2)
[2020-09-18 13:43] LABS: Alanine Aminotransferase 16 units/L (7-56); Uric Acid 5.3 mg/dL (3.5-7.6)
[2020-09-18] MEDS ORDERED: LACTATED RINGERS 500 ML IV ONE (14:05)
[2020-09-18 16:14] VITALS: BP 137/85
== END 2020-09-18 16:34 | disposition home or self-care (01) ==
LOC: TRG 11:31 → APU 11:33 → TRG 16:34
PROVIDERS: ATTEND Obstetrics & Gynecology
DX: O47.02 False labor before 37 completed weeks of gestation, second trimester (principal); Z3A.27 27 weeks gestation of pregnancy
CPT/HCPCS: 36415; 59025; 81001; 82565; 83615; 84450; 84460; 84550; 85027

== ENCOUNTER 2020-09-22 16:12 | Observation (INO) | payer OTHER ==
[2020-09-22] MEDS ORDERED: DOCUSATE SODIUM 100 MG CAP PO PRN (16:58)
[2020-09-22 18:03] LABS: Alanine Aminotransferase 27 units/L (7-56); Albumin 3.3 g/dL (3.9-5); Blood Urea Nitrogen 10 mg/dL (7-17); Calcium 9.3 mg/dL (8.4-10.2); Hemolysis Index 6
[2020-09-22 18:04] LABS: BUN/Creatinine Ratio 20
[2020-09-22 18:06] LABS: Bilirubin,Urine NEG (Negative); Blood,Urine NEG (Negative); Color,Urine Yellow (Yellow); Mucus,Urine FEW /HPF; Urobilinogen,Urine < 2.0 mg/dL (<2.0)
[2020-09-22] MEDS: LACTATED RINGERS 1,000 ML IV SCH (18:21)
[2020-09-22] MEDS: BETAMET ACET/BETAMET NA PH 6 MG/ML INJ 5 ML MDV IM SCH (18:22)
[2020-09-22 18:40] LABS: Basophils % (Auto) 0.2 % (0.0-1.8); Eosinophils % (Auto) 0.4 % (0.0-4.3); Hematocrit 30.2 % (30.3-42.9); Hemoglobin 10.4 gm/dl (10.1-14.3); Lymphocytes # (Auto) 1.2 K/mm3 (1.2-5.4); Lymphocytes % (Auto) 16.1 % (13.4-35.0); Mean Corpuscular HGB Conc 34 % (30-34); Mean Corpuscular Volume 86 fl (79-97); Monocytes # (Auto) 0.4 K/mm3 (0.0-0.8); Monocytes % (Auto) 5.9 % (0.0-7.3); Platelet Count 251 K/mm3 (140-440); Red Blood Count 3.53 M/mm3 (3.65-5.03); Red Cell Distribution Width 17.5 % (13.2-15.2)
[2020-09-22 18:50] LABS: INR 0.91 (0.87-1.13)
[2020-09-22 18:51] LABS: Partial Thromboplastin Time 26.4 Sec. (24.2-36.6)
[2020-09-23] MEDS: LACTATED RINGERS 1,000 ML IV SCH (04:04)
[2020-09-23] MEDS: ACETAMINOPHEN 325 MG TAB PO PRN (08:05)
[2020-09-23] MEDS: PRENATAL VIT27-FE FUMARATE-FOLIC ACID VIT TAB PO SCH (10:00)
[2020-09-23] MEDS: ASPIRIN 81 MG TAB CHEW PO SCH (10:50)
--- NOTE | 2020-09-23 15:09 | History and Physical Report ---
History of Present Illness Date of examination: 09/23/20 Date of admission: 09/22/20 16:58 Chief complaint: demise for twin B, elevated blood pressures History of present illness: 25 yo at 28w4d c/b hx di/di twin gestation with demise of twin B with s evere FGR, ventriculomegaly, and anhydramnios, suspected CHTN, hx abruption at 26wks with prior in 2019, class II obesity s/p now dx of demise of twin B for extended monitoring and PIH assessment. Patient without current complaints. +FM x 1. Denies labor complaints or PIH symptoms. Do not have labs. PNC at [facility], but unclear if patient is still going to that clinic. Last seen by CARIN 09/22/2020. Past History Past Medical History: other (?CHTN, Class II Obesity) Past Surgical History: no surgical history Family/Genetic History: diabetes, heart disease - Obstetrical History : 3 Para: 2 Hx # Term Pregnancies: 1 Number of Pregnancies: 1 Spontaneous Abortions: 1 Number of Living Children: 0 Medications and Allergies Allergies Allergy/AdvReac Type Severity Reaction Status Date / Time Penicillins AdvReac Severe Hives Verified 09/01/20 13:22 Home Medications Medication Instructions Recorded Confirmed Last Taken Type Vit-Fe Fumar-FA [ 1 tab PO QDAY 01/07/19 09/23/20 09/22/20 History Vitamin] 0800 Active Meds: Active Medications Acetaminophen (Tylenol) 650 mg PO Q4H PRN PRN Reason: Pain MILD(1-3)/Fever >100.5/CROWELL Last Admin: 09/23/20 08:05 Dose: 650 mg Documented by: Aspirin (Baby Aspirin) 81 mg PO QDAY [facility] Last Admin: 09/23/20 10:50 Dose: 81 mg Documented by: Betamethasone Acet/Betameth SodPhos (Celestone Soluspan) 12 mg IM Q24HR [facility] Last Admin: 09/22/20 18:22 Dose: 12 mg Documented by: Docusate Sodium (Colace) 100 mg PO Q12H PRN PRN Reason: Constipation Lactated Ringer's (Lactated Ringers) 1,000 mls @ 125 mls/hr IV DIRECT [facility] Last Admin: 09/23/20 04:04 Dose: 125 mls/hr Documented by: Labetalol HCl (Labetalol) 200 mg PO BID [facility] Last Admin: 09/23/20 10:00 Dose: 200 mg Documented by: Multivitamins/Iron/Calcium ( Vitamin) 1 each PO QDAY [facility] Last Admin: 09/23/20 10:00 Dose: 1 each Documented by: Review of Systems All systems: negative (except HPI) - Vital Signs Vital signs: Vital Signs Pulse BP 91 H 130/77 09/22/20 17:16 09/22/20 17:16 Temp Pulse Resp BP Pulse Ox 97.9 F 88 18 132/79 98 09/23/20 12:07 09/23/20 14:54 09/23/20 12:07 09/23/20 14:01 09/23/20 14:54 - Physical Exam Abdomen: Positive: normal appearance, normal bowel sounds - Obstetrical FHR: category 1 Uterine Contraction Monitor Mode: External Uterine Contraction Pattern: Absent Results Result Diagrams: 09/22/20 17:21 09/22/20 17:21 Abnormal lab results 09/22/20 09/22/20 09/22/20 Range/Units 17:21 17:21 17:21 RBC 3.53 L (3.65-5.03) M/mm3 Hct 30.2 L (30.3-42.9) % RDW 17.5 H (13.2-15.2) % Seg Neutrophils % 77.4 H (40.0-70.0) % PT 12.1 L (12.2-14.9) Sec. Fibrinogen 509 H (211-480) mg/dl D-Dimer 692.24 H (0-234) ng/mlDDU Sodium 135 L (137-145) mmol/L Carbon Dioxide 18 L (22-30) mmol/L Creatinine 0.5 L (0.6-1.2) mg/dL Glucose 101 H (65-100) mg/dL Alkaline Phosphatase 334 H (35-129) units/L Albumin 3.3 L (3.9-5) g/dL All other labs normal. Assessment and Plan - Patient Problems (1) Dichorionic diamniotic twin in third trimester Current Visit: Yes Status: Acute Plan to address problem: s/p demise of twin B, Twin B complicated by IUGR, bilateral ventriculomegaly, and anhydramnios. Here for extended monitoring given risk of adverse affects, including abruption. Hx abrutpion at 26 weeks in 2019 in prior . Quad screen increased risk OSB. Twin B with borderline right ventriculomegaly. --Steriods of lung maturity --CBC, CMP, 24H TP, TSH, ALPS, TORCH workup --Plan for repeat BPP 09/24 if okay for discharge (2) Elevated blood pressure affecting in third trimester, antepartum Current Visit: Yes Status: Acute Plan to address problem: --Concern for suspected CHTN. Monitor BPs. Denies PIH symptoms. --Started on labetolol 200mg BID, titrate PRN --24H TP ordered --Low dose aspirin ordered
[2020-09-23 17:33] LABS: Creatinine 24 Hour,Urine 1.2 (0.8-2.8); Creatinine,Urine 31.1 mg/dL (0.1-20.0)
[2020-09-23] MEDS: BETAMET ACET/BETAMET NA PH 6 MG/ML INJ 5 ML MDV IM SCH (18:24)
[2020-09-24] MEDS: LACTATED RINGERS 1,000 ML IV SCH ×2 (08:01→16:25)
[2020-09-24] MEDS: ACETAMINOPHEN 325 MG TAB PO PRN (08:07)
[2020-09-24] MEDS: PRENATAL VIT27-FE FUMARATE-FOLIC ACID VIT TAB PO SCH (09:56)
[2020-09-24] MEDS: ASPIRIN 81 MG TAB CHEW PO SCH (09:56)
--- NOTE | 2020-09-24 16:25 | Progress Note ---
Assessment and Plan - Patient Problems (1) Dichorionic diamniotic twin in third trimester Current Visit: Yes Status: Acute Plan to address problem: s/p demise of twin B, Twin B complicated by IUGR, bilateral ventriculomegaly, and anhydramnios. Here for extended monitoring given risk of adverse affects, including abruption. Hx abruption at 26 weeks in 2019 in prior . Quad screen increased risk OSB. Twin B with borderline right ventriculomegaly. --s/p Steroids of lung maturity --CBC, CMP, TSH wnl --ALPS, TORCH workup pending --BPP today (2) Elevated blood pressure affecting in third trimester, antepartum Current Visit: Yes Status: Acute Plan to address problem: --Concern for suspected CHTN. Now with mild preeclampsia given TP 814. Monitor BPs. Denies PIH symptoms. --Started on labetolol 200mg BID, titrate PRN --Continue low dose aspirin ordered --Will consult [facility] to determine length of stay Subjective - Subjective Date of service: 09/24/20 Principal diagnosis: mild preeclampsia, di/di gestation with demise Twin B Interval history: Patient without current complaints. +FM x 1. Denies labor complaints or PIH symptoms. Objective - Vital Signs Vital Signs: Vital Signs - 12hr 09/24/20 09/24/20 09/24/20 04:28 04:33 04:38 Temperature Pulse Rate 85 84 84 Respiratory Rate Blood Pressure Blood Pressure [Right] O2 Sat by Pulse 98 98 98 Oximetry 09/24/20 09/24/20 09/24/20 04:43 04:48 04:53 Temperature Pulse Rate 86 105 H 86 Respiratory Rate Blood Pressure Blood Pressure [Right] O2 Sat by Pulse 98 97 97 Oximetry 09/24/20 09/24/20 09/24/20 04:58 05:01 05:03 Temperature Pulse Rate 89 83 87 Respiratory Rate Blood Pressure 129/75 Blood Pressure [Right] O2 Sat by Pulse 96 98 Oximetry 09/24/20 09/24/20 09/24/20 05:08 05:11 05:13 Temperature Pulse Rate 91 H 92 H 94 H Respiratory Rate Blood Pressure Blood Pressure [Right] O2 Sat by Pulse 95 94 97 Oximetry 09/24/20 09/24/20 09/24/20 05:16 05:18 05:23 Temperature Pulse Rate 94 H 100 H 94 H Respiratory Rate Blood Pressure Blood Pressure [Right] O2 Sat by Pulse 94 97 95 Oximetry 09/24/20 09/24/20 09/24/20 05:25 05:28 05:33 Temperature Pulse Rate 91 H 103 H 89 Respiratory Rate Blood Pressure Blood Pressure [Right] O2 Sat by Pulse 94 96 95 Oximetry 09/24/20 09/24/20 09/24/20 05:37 05:38 05:42 Temperature Pulse Rate 91 H 88 97 H Respiratory Rate Blood Pressure Blood Pressure [Right] O2 Sat by Pulse 94 94 94 Oximetry 09/24/20 09/24/20 09/24/20 05:43 05:48 05:53 Temperature Pulse Rate 93 H 91 H 92 H Respiratory Rate Blood Pressure Blood Pressure [Right] O2 Sat by Pulse 94 94 95 Oximetry 09/24/20 09/24/20 09/24/20 05:55 05:58 06:01 Temperature Pulse Rate 94 H 92 H 95 H Respiratory Rate Blood Pressure 130/76 Blood Pressure [Right] O2 Sat by Pulse 94 95 Oximetry 09/24/20 09/24/20 09/24/20 06:03 06:04 06:08 Temperature Pulse Rate 95 H 97 H 95 H Respiratory Rate Blood Pressure Blood Pressure [Right] O2 Sat by Pulse 95 94 96 Oximetry 09/24/20 09/24/20 09/24/20 06:10 06:13 06:15 Temperature Pulse Rate 103 H 100 H 104 H Respiratory Rate Blood Pressure Blood Pressure [Right] O2 Sat by Pulse 94 95 94 Oximetry 09/24/20 09/24/20 09/24/20 06:18 06:20 06:23 Temperature Pulse Rate 107 H 108 H 100 H Respiratory Rate Blood Pressure Blood Pressure [Right] O2 Sat by Pulse 94 94 96 Oximetry 09/24/20 09/24/20 09/24/20 06:28 06:33 06:38 Temperature Pulse Rate 99 H 104 H 99 H Respiratory Rate Blood Pressure Blood Pressure [Right] O2 Sat by Pulse 95 96 99 Oximetry 09/24/20 09/24/20 09/24/20 06:43 06:48 06:53 Temperature Pulse Rate 94 H 95 H 94 H Respiratory Rate Blood Pressure Blood Pressure [Right] O2 Sat by Pulse 99 97 98 Oximetry 09/24/20 09/24/20 09/24/20 06:59 07:01 07:04 Temperature Pulse Rate 88 92 H 89 Respiratory Rate Blood Pressure 123/76 Blood Pressure [Right] O2 Sat by Pulse 97 98 Oximetry 09/24/20 09/24/20 09/24/20 07:09 07:14 07:19 Temperature Pulse Rate 98 H 96 H 89 Respiratory Rate Blood Pressure Blood Pressure [Right] O2 Sat by Pulse 98 99 99 Oximetry 09/24/20 09/24/20 09/24/20 07:23 07:29 07:34 Temperature Pulse Rate 96 H 95 H 88 Respiratory Rate Blood Pressure Blood Pressure [Right] O2 Sat by Pulse 98 99 98 Oximetry 09/24/20 09/24/20 09/24/20 07:38 07:43 07:48 Temperature Pulse Rate 87 100 H 81 Respiratory Rate Blood Pressure Blood Pressure [Right] O2 Sat by Pulse 98 98 98 Oximetry 09/24/20 09/24/20 09/24/20 07:52 07:53 07:54 Temperature 98.9 F Pulse Rate 80 81 88 Respiratory 18 Rate Blood Pressure 131/71 Blood Pressure 131/71 [Right] O2 Sat by Pulse 99 99 Oximetry 09/24/20 09/24/20 09/24/20 07:58 08:01 08:03 Temperature Pulse Rate 89 84 87 Respiratory Rate Blood Pressure 133/77 Blood Pressure [Right] O2 Sat by Pulse 99 99 Oximetry 09/24/20 09/24/20 09/24/20 08:08 08:14 08:19 Temperature Pulse Rate 86 101 H 95 H Respiratory Rate Blood Pressure Blood Pressure [Right] O2 Sat by Pulse 99 99 98 Oximetry 09/24/20 09/24/20 09/24/20 08:31 08:37 08:41 Temperature Pulse Rate 95 H 84 81 Respiratory Rate Blood Pressure Blood Pressure [Right] O2 Sat by Pulse 100 98 98 Oximetry 09/24/20 09/24/20 09/24/20 08:46 08:51 08:57 Temperature Pulse Rate 89 85 91 H Respiratory Rate Blood Pressure Blood Pressure [Right] O2 Sat by Pulse 100 99 98 Oximetry 09/24/20 09/24/20 09/24/20 09:01 09:02 09:07 Temperature Pulse Rate 85 96 H 89 Respiratory Rate Blood Pressure 124/70 Blood Pressure [Right] O2 Sat by Pulse 97 98 Oximetry 09/24/20 09/24/2020 09:12 09:16 09:22 Temperature Pulse Rate 88 95 H 93 H Respiratory Rate Blood Pressure Blood Pressure [Right] O2 Sat by Pulse 100 98 98 Oximetry 09/24/20 09/24/20 09/24/20 09:26 09:31 09:37 Temperature Pulse Rate 101 H 98 H 94 H Respiratory Rate Blood Pressure Blood Pressure [Right] O2 Sat by Pulse 98 98 97 Oximetry 09/24/20 09/24/20 09/24/20 09:41 09:46 09:51 Temperature Pulse Rate 96 H 92 H 94 H Respiratory Rate Blood Pressure Blood Pressure [Right] O2 Sat by Pulse 97 97 97 Oximetry 09/24/20 09/24/20 09/24/20 09:56 10:01 10:06 Temperature Pulse Rate 93 H 96 H 95 H Respiratory Rate Blood Pressure 124/70 125/74 Blood Pressure [Right] O2 Sat by Pulse 99 97 98 Oximetry 09/24/20 09/24/20 09/24/20 10:12 10:17 10:21 Temperature Pulse Rate 105 H 100 H 104 H Respiratory Rate Blood Pressure Blood Pressure [Right] O2 Sat by Pulse 97 99 97 Oximetry 09/24/20 09/24/20 09/24/20 10:26 10:31 10:36 Temperature Pulse Rate 102 H 117 H 115 H Respiratory Rate Blood Pressure Blood Pressure [Right] O2 Sat by Pulse 97 98 97 Oximetry 09/24/20 09/24/20 09/24/20 10:41 10:46 10:51 Temperature Pulse Rate 111 H 108 H 104 H Respiratory Rate Blood Pressure Blood Pressure [Right] O2 Sat by Pulse 98 97 97 Oximetry 09/24/20 09/24/20 09/24/20 10:56 11:01 11:07 Temperature Pulse Rate 107 H 105 H 107 H Respiratory Rate Blood Pressure 136/76 Blood Pressure [Right] O2 Sat by Pulse 98 97 98 Oximetry 09/24/20 09/24/20 09/24/20 11:12 11:17 11:22 Temperature Pulse Rate 107 H 103 H 104 H Respiratory Rate Blood Pressure Blood Pressure [Right] O2 Sat by Pulse 98 97 97 Oximetry 09/24/20 09/24/20 09/24/20 11:26 11:32 11:37 Temperature Pulse Rate 104 H 103 H 99 H Respiratory Rate Blood Pressure Blood Pressure [Right] O2 Sat by Pulse 97 97 96 Oximetry 09/24/20 09/24/20 09/24/20 11:42 11:47 11:52 Temperature Pulse Rate 113 H 111 H 107 H Respiratory Rate Blood Pressure Blood Pressure [Right] O2 Sat by Pulse 99 99 97 Oximetry 09/24/20 09/24/20 09/24/20 11:57 12:01 12:02 Temperature Pulse Rate 113 H 99 H 101 H Respiratory Rate Blood Pressure 127/76 Blood Pressure [Right] O2 Sat by Pulse 98 98 Oximetry 09/24/20 09/24/20 09/24/20 12:07 12:12 12:17 Temperature Pulse Rate 105 H 100 H 98 H Respiratory Rate Blood Pressure Blood Pressure [Right] O2 Sat by Pulse 97 97 97 Oximetry 09/24/20 09/24/20 09/24/20 12:18 12:19 12:22 Temperature 98.8 F Pulse Rate 104 H 105 H 106 H Respiratory 18 Rate Blood Pressure 134/76 Blood Pressure 134/76 [Right] O2 Sat by Pulse 98 98 Oximetry 09/24/20 09/24/20 09/24/20 12:27 12:41 12:46 Temperature Pulse Rate 101 H 104 H 93 H Respiratory Rate Blood Pressure Blood Pressure [Right] O2 Sat by Pulse 99 99 98 Oximetry 09/24/20 09/24/20 09/24/20 12:51 12:56 13:01 Temperature Pulse Rate 107 H 113 H 107 H Respiratory Rate Blood Pressure 133/82 Blood Pressure [Right] O2 Sat by Pulse 100 98 99 Oximetry 09/24/20 09/24/20 09/24/20 13:06 13:11 13:16 Temperature Pulse Rate 111 H 107 H 102 H Respiratory Rate Blood Pressure Blood Pressure [Right] O2 Sat by Pulse 99 99 98 Oximetry 09/24/20 09/24/20 09/24/20 13:21 13:26 13:31 Temperature Pulse Rate 104 H 98 H 98 H Respiratory Rate Blood Pressure Blood Pressure [Right] O2 Sat by Pulse 98 98 98 Oximetry 09/24/20 09/24/20 09/24/20 13:36 13:41 13:46 Temperature Pulse Rate 97 H 93 H 89 Respiratory Rate Blood Pressure Blood Pressure [Right] O2 Sat by Pulse 98 98 98 Oximetry 09/24/20 09/24/20 09/24/20 13:51 13:56 14:01 Temperature Pulse Rate 95 H 98 H 103 H Respiratory Rate Blood Pressure 123/69 Blood Pressure [Right] O2 Sat by Pulse 99 97 96 Oximetry 09/24/20 09/24/20 09/24/20 14:06 14:11 14:16 Temperature Pulse Rate 96 H 95 H 100 H Respiratory Rate Blood Pressure Blood Pressure [Right] O2 Sat by Pulse 97 97 97 Oximetry 09/24/20 09/24/20 09/24/20 14:21 14:26 14:31 Temperature Pulse Rate 99 H 102 H 97 H Respiratory Rate Blood Pressure Blood Pressure [Right] O2 Sat by Pulse 97 99 98 Oximetry 09/24/20 09/24/20 09/24/20 14:36 14:41 14:46 Temperature Pulse Rate 100 H 106 H 110 H Respiratory Rate Blood Pressure Blood Pressure [Right] O2 Sat by Pulse 97 96 96 Oximetry 09/24/20 09/24/20 09/24/20 14:51 14:56 15:01 Temperature Pulse Rate 106 H 98 H 100 H Respiratory Rate Blood Pressure 132/75 Blood Pressure [Right] O2 Sat by Pulse 96 98 97 Oximetry 09/24/20 09/24/20 09/24/20 15:06 15:11 15:16 Temperature Pulse Rate 97 H 102 H 109 H Respiratory Rate Blood Pressure Blood Pressure [Right] O2 Sat by Pulse 97 96 99 Oximetry 09/24/20 09/24/20 09/24/20 15:21 15:25 15:30 Temperature Pulse Rate 105 H 104 H 105 H Respiratory Rate Blood Pressure Blood Pressure [Right] O2 Sat by Pulse 99 98 98 Oximetry 09/24/20 09/24/20 09/24/20 15:36 15:41 15:46 Temperature Pulse Rate 107 H 108 H 113 H Respiratory Rate Blood Pressure Blood Pressure [Right] O2 Sat by Pulse 99 98 98 Oximetry 09/24/20 09/24/20 09/24/20 15:51 15:56 16:01 Temperature Pulse Rate 107 H 106 H 104 H Respiratory Rate Blood Pressure 122/72 Blood Pressure [Right] O2 Sat by Pulse 98 98 98 Oximetry 09/24/20 09/24/20 09/24/20 16:05 16:06 16:09 Temperature 98.4 F Pulse Rate 94 H 101 H 100 H Respiratory 17 Rate Blood Pressure 127/73 Blood Pressure [Right] O2 Sat by Pulse 99 Oximetry 09/24/20 09/24/20 09/24/20 16:11 16:16 16:21 Temperature Pulse Rate 96 H 95 H 97 H Respiratory Rate Blood Pressure Blood Pressure [Right] O2 Sat by Pulse 99 98 98 Oximetry - Exam Abdomen: Present: normal appearance, normal bowel sounds FHR: category 1 Uterine Contraction Monitor Mode: External Uterine Contraction Pattern: Absent - Labs Labs: Abnormal Labs 09/22/20 09/22/20 09/22/20 17:21 17:21 17:21 RBC 3.53 L Hct 30.2 L RDW 17.5 H Seg Neutrophils % 77.4 H PT 12.1 L Fibrinogen 509 H D-Dimer 692.24 H Sodium 135 L Carbon Dioxide 18 L Creatinine 0.5 L Glucose 101 H Alkaline Phosphatase 334 H Albumin 3.3 L Urine Creatinine Ur Total Protein 24 Hr Urine Total Protein 09/23/20 16:58 RBC Hct RDW Seg Neutrophils % PT Fibrinogen D-Dimer Sodium Carbon Dioxide Creatinine Glucose Alkaline Phosphatase Albumin Urine Creatinine 31.1 H Ur Total Protein 24 Hr 814.00 H Urine Total Protein 22 H Laboratory Results - last 24 hr 09/23/20 09/23/20 09/23/20 15:45 15:45 16:58 TSH 1.390 Urine Total Volume 3700 Urine Creatinine 31.1 H Ur Creatinine 24 Hour 1.2 Ur Total Protein 24 Hr 814.00 H Urine Total Protein 22 H Rubella IgG Antibody Immune
--- NOTE | 2020-09-24 16:59 | Discharge Summary ---
Providers - Providers Date of Admission: 09/22/20 16:58 Date of discharge: 09/24/20 Attending physician: ISAK GARCÍA JR, MD 09/23/20 20:14 Consult to Physician [CONS] Urgent Comment: Consulting Provider: OLIVA CANDELARIO Physician Instructions: Reason For Exam: 28 week di/di gestation, demise B, now with preE Primary care physician: ISAK GARCÍA JR, MD Hospitalization Reason for admission: observation (blood pressure evaluation and extended monitoring) Hospital course: 25 yo admitted at 28w4d c/b hx di/di twin gestation with demise of twin B with severe FGR, ventriculomegaly, and anhydramnios, suspected CHTN, hx abruption at 26wks with prior in 2019, class II obesity s/p now dx of demise of twin B for extended monitoring and PIH assessment. s/p steroids for lung maturity. PIH labs showing TP 814. Now dx of preclampsia without severe features. Started on labetolol 200mg BID and low dose aspirin. ALPS and TORCH testing sent. Discharged in good condition after normal BPP on 09/24/2020 at 28w6d. Condition at discharge: Good Disposition: DC-01 TO HOME OR SELFCARE - Discharge Diagnoses (1) Dichorionic diamniotic twin in third trimester Status: Acute (2) Elevated blood pressure affecting in third trimester, antepartum Status: Acute Plan - Discharge Medications Prescriptions: Aspirin [Aspirin BABY CHEW TAB] 81 mg PO QDAY 6 Days #30 tab.chew labetaloL [Labetalol 200mg TAB] 200 mg PO BID #60 tablet - Provider Discharge Summary Activity: routine Diet: routine Instructions: routine Additional instructions: [] Smoking cessation referral if applicable(refer to patient education folder for contact #) [] Refer to [facility] Booklet Call your doctor immediately for: * Fever > 100.5 * Heavy vaginal bleeding ( >1 pad per hour) * Severe persistent headache * Shortness of breath * Reddened, hot, painful area to leg or breast * Drainage or odor from incision. * Keep incision clean and dry at all times and follow doctor's instructions regarding bathing/showering - Follow up plan Follow up: ISAK GARCÍA JR, MD [Primary Care Provider] - 7 Days
[2020-09-24 17:02] VITALS: BP 131/79
--- NOTE | 2020-09-24 18:43 | Ultrasound Report ---
ULTRASOUND BIOPHYSICAL PROFILE INDICATION: preeclampsia. COMPARISON: None available. FINDINGS: BREATHING MOVEMENT = 2 GROSS BODY MOVEMENT = 2 TONE = 2 QUALITATIVE AMNIOTIC FLUID VOLUME = 2 TOTAL BIOPHYSICAL SCORE = 06/10 AMNIOTIC FLUID INDEX (cm) = not measured, however, 1 pocket measures 2.5 cm PRESENTATION: Breech. HEART RATE (beats per minute): 154 IMPRESSION: 1. biophysical profile = 06/10 Signer Name: Riley Argueta MD Signed: 09/24/2020 6:39 PM Workstation Name: [id number]
[2020-09-27 12:32] LABS: Cardiolipin Ab IgA <11 APL (<=11); Cardiolipin Ab IgG <14 GPL (<=14); Cardiolipin Ab IgM <12 MPL (<=12)
== END 2020-09-24 18:10 | disposition home or self-care (01) ==
LOC: TRG 16:12 → LD 16:12 → TRG 16:58 → LD 16:58
PROVIDERS: ADMIT Obstetrics & Gynecology; ATTEND Obstetrics & Gynecology
DX: O30.043 Twin pregnancy, dichorionic/diamniotic, third trimester (principal); O26.893 Other specified pregnancy related conditions, third trimester; R03.0 Elevated blood-pressure reading, without diagnosis of hypertension; O36.4XX0 Maternal care for intrauterine death, not applicable or unspecified; O99.213 Obesity complicating pregnancy, third trimester; E66.9 Obesity, unspecified; Z3A.28 28 weeks gestation of pregnancy; Z79.82 Long term (current) use of aspirin; Z79.899 Other long term (current) drug therapy
CPT/HCPCS: 36415; 59025; 76819; 80053; 81001; 82232; 82570; 84156; 84443; 85025; 85379; 85384; 85610; 85613; 85730; 86147; 86644; 86645; 86762; 86777; 86778; 86850; 86900; 86901; 87529; 96360; 96361; 96372; G0378; J0702; J7120

== ENCOUNTER 2020-11-13 16:12 | Inpatient (IN) | payer OTHER ==
[2020-11-13 17:19] LABS: Bacteria,Urine 1+ /HPF (Negative); Bilirubin,Urine NEG (Negative); Blood,Urine NEG (Negative); Color,Urine Straw (Yellow); Urobilinogen,Urine < 2.0 mg/dL (<2.0)
[2020-11-13] MEDS: LACTATED RINGERS 1,000 ML IV SCH ×2 (17:58→21:43)
[2020-11-13 18:19] LABS: Hematocrit 34.1 % (30.3-42.9); Hemoglobin 11.3 gm/dl (10.1-14.3); Mean Corpuscular HGB Conc 33 % (30-34); Mean Corpuscular Volume 87 fl (79-97); Platelet Count 305 K/mm3 (140-440); Red Blood Count 3.92 M/mm3 (3.65-5.03); Red Cell Distribution Width 18.7 % (13.2-15.2)
[2020-11-13] MEDS: BETAMET ACET/BETAMET NA PH 6 MG/ML INJ 5 ML MDV IM SCH (18:22)
[2020-11-13 18:37] LABS: Alanine Aminotransferase 18 units/L (7-56); Uric Acid 5.7 mg/dL (3.5-7.6)
--- NOTE | 2020-11-13 20:08 | History and Physical Report ---
History of Present Illness Date of examination: 11/13/20 Chief complaint: pt here by choice because she was sent to [facility] to be seen by Dr. Cuello but pt changed her mind and came here. History of present illness: at 35.6wks by records with twin gestation and twin B demise at 28wks. Pt has care at [facility] and has been taking labetalol 20mg bid for gestation HTN. Pt denies headache. pt admits to movement. denies leakage of fluid or vaginal bleeding. Pt is concerned because she had a previous abruption at 24wks in 2019 therefore she wants to make sure this baby will do well. Denies fever or chills or exposure to covid. 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 (treated for chlamydia in this adn JULIO negative on 08/04/20) Family/Genetic History: none Social history: no significant social history - Obstetrical History : 3 (Now with TIUP, twin B demise) Hx # Term Pregnancies: 0 Number of Pregnancies: 1 (abruption at 24wks) Spontaneous Abortions: 1 Number of Living Children: 0 Medications and Allergies Allergies Allergy/AdvReac Type Severity Reaction Status Date / Time Penicillins AdvReac Severe Hives Verified 09/01/20 13:22 Home Medications Medication Instructions Recorded Confirmed Last Taken Type Vit-Fe Fumar-FA [ 1 tab PO QDAY 01/07/19 11/13/20 11/13/20 History Vitamin] Aspirin [Aspirin BABY CHEW TAB] 81 mg PO QDAY 6 Days #30 tab.chew 09/24/20 11/13/20 11/13/20 Rx labetaloL [Labetalol 200mg TAB] 200 mg PO BID #60 tablet 09/24/20 11/13/20 11/13/20 Rx Active Meds: Active Medications Betamethasone Acet/Betameth SodPhos (Betamet Acet/Betamet Na Ph 6 Mg/Ml Inj 5 Ml Mdv) 12 mg IM Q24H MANISHA Stop: 11/14/20 18:16 Last Admin: 11/13/20 18:22 Dose: 12 mg Documented by: Lactated Ringer's (Lactated Ringers) 1,000 mls @ 125 mls/hr IV DIRECT MANISHA Last Admin: 11/13/20 17:58 Dose: 125 mls/hr Documented by: Labetalol HCl (Labetalol 200 Mg Tab) 200 mg PO BID MANISHA Review of Systems All systems: negative (sent from her clinic for evaluation and she chose to come here instead of [facility]) - Vital Signs Vital signs: Vital Signs Pulse Pulse Ox 85 96 11/13/20 16:42 11/13/20 16:42 Temp Pulse Resp BP Pulse Ox 97.7 F 80 20 130/88 98 11/13/20 18:18 11/13/20 19:51 11/13/20 18:18 11/13/20 19:20 11/13/20 19:51 - Physical Exam Breasts: Positive: deferred Cardiovascular: Regular rate Lungs: Positive: Normal air movement Abdomen: Positive: other (Limited exam due to morbid obesity) Genitourinary (Female): Positive: normal external genitalia Vulva: both: normal (no lesions) Vagina: Positive: normal moisture Uterus: Positive: enlarged (gravid non-tender) - Obstetrical FHR: category 1 FHR comments: marked variability in triage that resolved after IV fluids Uterine Contraction Monitor Mode: External Cervical Dilatation: 0 Cervical Effacement Percentage: 0 station: -2 Uterine Contraction Pattern: Absent Uterine Tone Measurement Phase: Resting Results Result Diagrams: 11/13/20 17:59 11/13/20 17:59 Abnormal lab results 11/13/20 11/13/20 Range/Units 17:59 17:59 RDW 18.7 H (13.2-15.2) % Creatinine 0.5 L (0.6-1.2) mg/dL Lactate Dehydrogenase 227 H (91-180) units/L All other labs normal. Assessment and Plan at 35.6wks with TIUP, di/di, twin B with demise and twin A vertex with h/o abruption at 28wks and now with gestational HTN; Morbid Obesity 1. Consult [facility], order Ob u/sound BPP and EFW 2. 24hr prot and do PIH workup 3. Give rescue dose steroids with last course 1month ago 4. Continuous FHR/toco 5. Continue labetalol 200mg bid and adjust upwards if needed 6. Hold ASA with possible induction if FHR non-reassuring 7. Delivery if NRFHR or signs of preeclampsia Plan of care discussed with pt and all questions encouraged and answered
[2020-11-14] MEDS: miSOPROStol 25 MCG TAB VG SCH ×2 (05:58→10:13)
[2020-11-14] MEDS: LACTATED RINGERS 1,000 ML IV SCH ×3 (05:58→22:30)
[2020-11-14] MEDS ORDERED: VANCOMYCIN/NS 1 GM/250 ML 1 GM/250 ML BAG IV SCH (06:00)
--- NOTE | 2020-11-14 06:54 | Event Note ---
Date: 11/14/20 Tests reviewed and BPP 04/10 noted with LAURA of 3; discussed with pt plan of care for augmentation of labor due to oligo, pt agreeable and cytotec 25mcg placed by nurse. FHR category 1. Official APA consult pending. Will give vanco for unknown GBS until GBS swab sent today is resulted. Nurse notified to collect same. Expect vag delivery.
--- NOTE | 2020-11-14 08:25 | Ultrasound Report ---
ULTRASOUND BIOPHYSICAL PROFILE INDICATION / CLINICAL INFORMATION: ESTIMATED WEIGHT/GESTATIONAL AGE. COMPARISON: None available. FINDINGS: BREATHING MOVEMENT = 2 GROSS BODY MOVEMENT = 2 TONE = 2 QUALITATIVE AMNIOTIC FLUID VOLUME = 0 TOTAL BIOPHYSICAL SCORE = 6/8 AMNIOTIC FLUID INDEX (cm) = 3.7 PRESENTATION: Cephalic. HEART RATE (beats per minute): 131 CERVICAL LENGTH: 4.8 cm PLACENTA: Posterior/fundal location with grade 1 appearance. ADDITIONAL FINDINGS: Biparietal diameter is 8.8 cm with estimated gestational age of 35 weeks and 4 d ays. Head circumference is 32.5 cm with estimated gestational age of 36 weeks and 6 days. Abdominal c ircumference is 29.1 cm with estimated gestational age of 33 weeks and 1 day. Femur length is 7.1 cm with estimated gestational age of 36 weeks and 1 day. Head circumference/abdominal circumference rati o is 1.12. Cephalic index is 79.0. Estimated weight is 2471 g. Average ultrasound gestational a ge is 35 weeks and 3 days. IMPRESSION: 1. biophysical profile = 6/8 Decreased amniotic fluid volume. Recommend clinical correlation an d close continued follow-up/further evaluation as warranted. 2. Additional findings as above. Signer Name: Gabo Love MD Signed: 11/13/2020 9:20 PM Workstation Name: [id number]
--- NOTE | 2020-11-14 10:21 | Progress Note ---
Assessment and Plan - Patient Problems (1) Dichorionic diamniotic twin in third trimester Current Visit: No Status: Acute Plan to address problem: Consulted with Dr. Nolan, confirmed fetus A is viable fetus and cephalic Discontinue cytotec until after second dose of Betamethasome is given (2) demise before 22 weeks with retention of fetus Current Visit: Yes Status: Acute Plan to address problem: Baby B confirmed to be demise by physician (3) Elevated blood pressure affecting in third trimester, antepartum Current Visit: No Status: Acute Plan to address problem: Continue Labetalol as ordered Continue to monitor B/Ps (4) GBS screening not performed Current Visit: Yes Status: Acute Plan to address problem: Continue GBS prophylaxis when in active labor Subjective - Subjective Date of service: 11/14/20 Principal diagnosis: TIUP with demis of fetus B Interval history: See admission H & P and OB progress notes Patient reports: movement normal, contractions (irregular), no new complaints, no loss of fluid, no vaginal bleeding Objective - Vital Signs Vital Signs: Vital Signs - 12hr 11/13/20 11/13/20 11/13/20 22:20 22:21 22:26 Temperature Pulse Rate 86 88 88 Respiratory Rate Blood Pressure 130/70 Blood Pressure [Left] O2 Sat by Pulse 97 96 Oximetry 11/13/20 11/13/20 11/13/20 22:31 22:36 22:41 Temperature Pulse Rate 89 89 95 H Respiratory Rate Blood Pressure Blood Pressure [Left] O2 Sat by Pulse 96 96 97 Oximetry 11/13/20 11/13/20 11/13/20 22:46 22:49 22:59 Temperature Pulse Rate 95 H 90 96 H Respiratory Rate Blood Pressure 131/75 Blood Pressure [Left] O2 Sat by Pulse 97 98 Oximetry 11/13/20 11/13/20 11/13/20 23:04 23:09 23:14 Temperature Pulse Rate 102 H 106 H 93 H Respiratory Rate Blood Pressure Blood Pressure [Left] O2 Sat by Pulse 98 98 97 Oximetry 11/13/20 11/13/20 11/13/20 23:19 23:24 23:29 Temperature Pulse Rate 93 H 97 H 92 H Respiratory Rate Blood Pressure 129/66 Blood Pressure [Left] O2 Sat by Pulse 97 98 98 Oximetry 11/13/20 11/13/20 11/13/20 23:34 23:39 23:44 Temperature Pulse Rate 91 H 90 89 Respiratory Rate Blood Pressure Blood Pressure [Left] O2 Sat by Pulse 98 97 97 Oximetry 11/13/20 11/13/20 11/13/20 23:49 23:54 23:59 Temperature Pulse Rate 93 H 89 88 Respiratory Rate Blood Pressure 127/74 Blood Pressure [Left] O2 Sat by Pulse 98 97 97 Oximetry 11/14/20 11/14/20 11/14/20 00:04 00:09 00:14 Temperature Pulse Rate 98 H 89 91 H Respiratory Rate Blood Pressure Blood Pressure [Left] O2 Sat by Pulse 97 97 96 Oximetry 11/14/20 11/14/20 11/14/20 00:19 00:24 00:29 Temperature Pulse Rate 87 94 H 93 H Respiratory Rate Blood Pressure 123/69 Blood Pressure [Left] O2 Sat by Pulse 96 96 96 Oximetry 11/14/20 11/14/20 11/14/20 00:34 00:39 00:40 Temperature Pulse Rate 86 89 84 Respiratory Rate Blood Pressure Blood Pressure [Left] O2 Sat by Pulse 96 96 94 Oximetry 11/14/20 11/14/20 11/14/20 00:44 00:49 00:54 Temperature Pulse Rate 89 86 91 H Respiratory Rate Blood Pressure 138/79 Blood Pressure [Left] O2 Sat by Pulse 97 96 97 Oximetry 11/14/20 11/14/20 11/14/20 00:59 01:04 01:09 Temperature Pulse Rate 103 H 103 H 94 H Respiratory Rate Blood Pressure Blood Pressure [Left] O2 Sat by Pulse 98 98 98 Oximetry 11/14/20 11/14/20 11/14/20 01:14 01:19 01:24 Temperature Pulse Rate 90 85 89 Respiratory Rate Blood Pressure 122/73 Blood Pressure [Left] O2 Sat by Pulse 98 97 97 Oximetry 11/14/20 11/14/20 11/14/20 01:29 01:34 01:39 Temperature Pulse Rate 88 86 98 H Respiratory Rate Blood Pressure Blood Pressure [Left] O2 Sat by Pulse 98 98 97 Oximetry 11/14/20 11/14/20 11/14/20 01:44 01:49 01:54 Temperature Pulse Rate 91 H 90 94 H Respiratory Rate Blood Pressure 124/72 Blood Pressure [Left] O2 Sat by Pulse 96 96 95 Oximetry 01/10/2311/14/20 11/14/20 01:59 02:04 02:09 Temperature Pulse Rate 89 93 H 90 Respiratory Rate Blood Pressure Blood Pressure [Left] O2 Sat by Pulse 95 95 95 Oximetry 11/14/20 11/14/20 11/14/20 02:13 02:14 02:19 Temperature Pulse Rate 92 H 89 97 H Respiratory Rate Blood Pressure 129/81 Blood Pressure [Left] O2 Sat by Pulse 94 95 98 Oximetry 11/14/20 11/14/20 11/14/20 02:24 02:26 02:29 Temperature Pulse Rate 90 88 90 Respiratory Rate Blood Pressure Blood Pressure [Left] O2 Sat by Pulse 96 94 94 Oximetry 11/14/20 11/14/20 11/14/20 02:32 02:34 02:37 Temperature Pulse Rate 105 H 78 81 Respiratory Rate Blood Pressure Blood Pressure [Left] O2 Sat by Pulse 94 96 94 Oximetry 11/14/20 11/14/20 11/14/20 02:39 02:43 02:44 Temperature Pulse Rate 85 88 86 Respiratory Rate Blood Pressure Blood Pressure [Left] O2 Sat by Pulse 94 94 95 Oximetry 11/14/20 11/14/20 11/14/20 02:49 02:54 02:57 Temperature Pulse Rate 83 87 84 Respiratory Rate Blood Pressure 133/77 Blood Pressure [Left] O2 Sat by Pulse 94 93 94 Oximetry 11/14/20 11/14/20 11/14/20 02:59 03:04 03:07 Temperature Pulse Rate 86 88 88 Respiratory Rate Blood Pressure Blood Pressure [Left] O2 Sat by Pulse 94 94 94 Oximetry 11/14/20 11/14/20 11/14/20 03:09 03:14 03:19 Temperature Pulse Rate 80 89 85 Respiratory Rate Blood Pressure 142/77 Blood Pressure [Left] O2 Sat by Pulse 94 95 97 Oximetry 11/14/20 11/14/20 11/14/20 03:23 03:24 03:28 Temperature Pulse Rate 84 86 84 Respiratory Rate Blood Pressure Blood Pressure [Left] O2 Sat by Pulse 94 95 94 Oximetry 11/14/20 11/14/20 11/14/20 03:29 03:33 03:34 Temperature Pulse Rate 79 93 H 97 H Respiratory Rate Blood Pressure Blood Pressure [Left] O2 Sat by Pulse 94 94 95 Oximetry 11/14/20 11/14/20 11/14/20 03:39 03:40 03:44 Temperature Pulse Rate 85 94 H 87 Respiratory Rate Blood Pressure Blood Pressure [Left] O2 Sat by Pulse 95 94 98 Oximetry 11/14/20 11/14/20 11/14/20 03:47 03:49 03:54 Temperature Pulse Rate 88 83 85 Respiratory Rate Blood Pressure 121/74 Blood Pressure [Left] O2 Sat by Pulse 94 95 97 Oximetry 11/14/20 11/14/20 11/14/20 03:59 04:04 04:09 Temperature Pulse Rate 83 88 82 Respiratory Rate Blood Pressure Blood Pressure [Left] O2 Sat by Pulse 95 95 95 Oximetry 11/14/20 11/14/20 11/14/20 04:14 04:19 04:24 Temperature Pulse Rate 84 92 H 85 Respiratory Rate Blood Pressure 139/76 Blood Pressure [Left] O2 Sat by Pulse 95 97 96 Oximetry 11/14/20 11/14/20 11/14/20 04:29 04:34 04:39 Temperature Pulse Rate 98 H 85 102 H Respiratory Rate Blood Pressure Blood Pressure [Left] O2 Sat by Pulse 95 95 96 Oximetry 11/14/20 11/14/20 11/14/20 04:44 04:49 04:54 Temperature Pulse Rate 91 H 86 86 Respiratory Rate Blood Pressure 142/80 Blood Pressure [Left] O2 Sat by Pulse 96 96 97 Oximetry 11/14/20 11/14/20 11/14/20 04:59 05:04 05:09 Temperature Pulse Rate 90 89 92 H Respiratory Rate Blood Pressure Blood Pressure [Left] O2 Sat by Pulse 96 95 98 Oximetry 11/14/20 11/14/20 11/14/20 05:14 05:19 05:24 Temperature Pulse Rate 83 92 H 84 Respiratory Rate Blood Pressure 135/78 Blood Pressure [Left] O2 Sat by Pulse 96 96 96 Oximetry 11/14/20 11/14/20 11/14/20 05:29 05:34 05:39 Temperature Pulse Rate 89 92 H 91 H Respiratory Rate Blood Pressure Blood Pressure [Left] O2 Sat by Pulse 98 96 96 Oximetry 11/14/20 11/14/20 11/14/20 05:44 05:54 05:59 Temperature Pulse Rate 85 95 H 87 Respiratory Rate Blood Pressure Blood Pressure [Left] O2 Sat by Pulse 98 98 99 Oximetry 11/14/20 11/14/20 11/14/20 06:04 06:09 06:14 Temperature Pulse Rate 105 H 80 93 H Respiratory Rate Blood Pressure Blood Pressure [Left] O2 Sat by Pulse 99 98 98 Oximetry 11/14/20 11/14/20 11/14/20 06:19 06:24 06:27 Temperature Pulse Rate 86 82 81 Respiratory Rate Blood Pressure 161/81 152/75 Blood Pressure [Left] O2 Sat by Pulse 98 98 Oximetry 11/14/20 11/14/20 11/14/20 06:29 06:34 06:39 Temperature Pulse Rate 80 88 80 Respiratory Rate Blood Pressure Blood Pressure [Left] O2 Sat by Pulse 98 98 98 Oximetry 11/14/20 11/14/20 11/14/20 06:44 06:49 06:54 Temperature Pulse Rate 87 88 85 Respiratory Rate Blood Pressure 142/87 Blood Pressure [Left] O2 Sat by Pulse 97 98 98 Oximetry 11/14/20 11/14/20 11/14/20 06:59 07:01 07:04 Temperature 98.1 F Pulse Rate 83 81 82 Respiratory 18 Rate Blood Pressure Blood Pressure 146/85 [Left] O2 Sat by Pulse 98 98 Oximetry 11/14/20 11/14/20 11/14/20 07:09 07:13 07:14 Temperature Pulse Rate 89 77 81 Respiratory Rate Blood Pressure 146/85 Blood Pressure [Left] O2 Sat by Pulse 98 98 Oximetry 11/14/20 11/14/20 11/14/20 07:18 07:19 07:24 Temperature Pulse Rate 79 90 81 Respiratory Rate Blood Pressure 153/87 Blood Pressure [Left] O2 Sat by Pulse 97 98 Oximetry 11/14/20 11/14/20 11/14/20 07:29 07:34 07:39 Temperature Pulse Rate 89 87 84 Respiratory Rate Blood Pressure Blood Pressure [Left] O2 Sat by Pulse 99 97 96 Oximetry 11/14/20 11/14/20 11/14/20 07:44 07:49 07:54 Temperature Pulse Rate 82 100 H 83 Respiratory Rate Blood Pressure 147/88 Blood Pressure [Left] O2 Sat by Pulse 97 98 96 Oximetry 11/14/20 11/14/20 11/14/20 07:59 08:12 08:17 Temperature Pulse Rate 87 76 76 Respiratory Rate Blood Pressure Blood Pressure [Left] O2 Sat by Pulse 96 98 98 Oximetry 11/14/20 11/14/20 11/14/20 08:19 08:22 08:27 Temperature Pulse Rate 74 78 82 Respiratory Rate Blood Pressure 154/83 Blood Pressure [Left] O2 Sat by Pulse 97 99 Oximetry 11/14/20 11/14/20 11/14/20 08:32 08:37 08:42 Temperature Pulse Rate 78 81 81 Respiratory Rate Blood Pressure Blood Pressure [Left] O2 Sat by Pulse 98 97 98 Oximetry 11/14/20 11/14/20 11/14/20 08:47 08:49 08:52 Temperature Pulse Rate 84 75 79 Respiratory Rate Blood Pressure 163/87 Blood Pressure [Left] O2 Sat by Pulse 99 98 Oximetry 11/14/20 11/14/20 11/14/20 08:57 09:02 09:07 Temperature Pulse Rate 80 83 82 Respiratory Rate Blood Pressure Blood Pressure [Left] O2 Sat by Pulse 98 97 99 Oximetry 11/14/20 11/14/20 11/14/20 09:12 09:17 09:19 Temperature Pulse Rate 80 77 78 Respiratory Rate Blood Pressure 160/100 Blood Pressure [Left] O2 Sat by Pulse 97 99 Oximetry 11/14/20 11/14/20 11/14/20 09:22 09:27 09:32 Temperature Pulse Rate 83 84 79 Respiratory Rate Blood Pressure Blood Pressure [Left] O2 Sat by Pulse 98 99 99 Oximetry 11/14/20 11/14/20 11/14/20 09:37 09:42 09:47 Temperature Pulse Rate 79 85 84 Respiratory Rate Blood Pressure Blood Pressure [Left] O2 Sat by Pulse 98 96 98 Oximetry 11/14/20 11/14/20 11/14/20 09:49 09:52 09:57 Temperature Pulse Rate 83 81 92 H Respiratory Rate Blood Pressure 159/92 Blood Pressure [Left] O2 Sat by Pulse 98 98 Oximetry 11/14/20 11/14/20 11/14/20 10:02 10:07 10:09 Temperature Pulse Rate 80 82 74 Respiratory Rate Blood Pressure 134/91 Blood Pressure [Left] O2 Sat by Pulse 98 98 Oximetry 11/14/20 10:12 Temperature Pulse Rate 88 Respiratory Rate Blood Pressure Blood Pressure [Left] O2 Sat by Pulse 98 Oximetry - Exam Breasts: deferred Cardiovascular: Regular rate Lungs: Normal air movement FHR: category 1 Uterine Contraction Monitor Mode: External Uterine Contraction Frequency (min): 2-4 Uterine Contraction Pattern: Irregular Uterine Tone Measurement Phase: Resting Uterine Contraction Intensity: Mild - Labs Labs: Abnormal Labs 11/13/20 11/13/20 17:59 17:59 RDW 18.7 H Creatinine 0.5 L Lactate Dehydrogenase 227 H Laboratory Results - last 24 hr 11/13/20 11/13/20 11/13/20 17:59 17:59 17:59 WBC 8.9 RBC 3.92 Hgb 11.3 Hct 34.1 MCV 87 MCH 29 MCHC 33 RDW 18.7 H Plt Count 305 Creatinine 0.5 L Estimated GFR > 60 Uric Acid 5.7 AST 20 ALT 18 Lactate Dehydrogenase 227 H Urine Color Urine Turbidity Urine pH Ur Specific [place] Urine Protein Urine Glucose (UA) Urine Ketones Urine Blood Urine Nitrite Urine Bilirubin Urine Urobilinogen Ur Leukocyte Esterase Urine WBC (Auto) Urine RBC (Auto) U Epithel Cells (Auto) Urine Bacteria (Auto) Blood Type O POSITIVE Antibody Screen Negative 11/13/20 Unknown WBC RBC Hgb Hct MCV MCH MCHC RDW Plt Count Creatinine Estimated GFR Uric Acid AST ALT Lactate Dehydrogenase Urine Color Straw Urine Turbidity Clear Urine pH 7.0 Ur Specific [place] 1.008 Urine Protein 100 mg/dl Urine Glucose (UA) Neg Urine Ketones Neg Urine Blood Neg Urine Nitrite Neg Urine Bilirubin Neg Urine Urobilinogen < 2.0 Ur Leukocyte Esterase Neg Urine WBC (Auto) 1.0 Urine RBC (Auto) 1.0 U Epithel Cells (Auto) 2.0 Urine Bacteria (Auto) 1+ Blood Type Antibody Screen
[2020-11-14] MEDS: BETAMET ACET/BETAMET NA PH 6 MG/ML INJ 5 ML MDV IM SCH (18:23)
[2020-11-14] MEDS: miSOPROStol 25 MCG TAB VG PRN (19:51)
[2020-11-14 20:16] LABS: Creatinine 24 Hour,Urine 1.3 (0.8-2.8); Creatinine,Urine 49.8 mg/dL (0.1-20.0)
[2020-11-15] MEDS: miSOPROStol 25 MCG TAB VG PRN (00:11)
[2020-11-15] MEDS ORDERED: ePHEDrine SULFATE 50 MG/1 ML INJ IV PRN ×2 (10:27→13:37)
[2020-11-15] MEDS ORDERED: TERBUTALINE 1 MG/1 ML INJ SUB-Q PRN (10:27)
[2020-11-15] MEDS ORDERED: LIDOCAINE (2%) 20 MG/1 ML VIAL 20 ML MDV INFILTRATI ONE (10:27)
[2020-11-15] MEDS ORDERED: OXYTOCIN DRIP 30,000 MILLIUNITS/500 ML BAG IV ONE (10:28)
--- NOTE | 2020-11-15 10:41 | Progress Note ---
Assessment and Plan A: IUP @ 36 1/7 Weeks Twin gestation with demise at 28 weeks Category I Tracing Gestational HTN Maternal Obesity GBS Unknown P: AROM IUPC Placed Start Pitocin Augmentation Start GBS Prophylaxis (Clindamycin) Continue Labetolol as ordered Multiple Maternal Position Changes Subjective - Subjective Date of service: 11/15/20 Principal diagnosis: TIUP with demis of fetus B Patient reports: movement normal, contractions (rates pain as mild), no new complaints, no loss of fluid, no vaginal bleeding Objective - Vital Signs Vital Signs: Vital Signs - 12hr 11/14/20 11/14/20 11/14/20 22:39 22:44 22:49 Temperature Pulse Rate 68 76 72 Blood Pressure 153/82 O2 Sat by Pulse 98 99 99 Oximetry 11/14/20 11/14/20 11/14/20 22:54 22:59 23:04 Temperature Pulse Rate 75 75 62 Blood Pressure O2 Sat by Pulse 97 99 98 Oximetry 11/14/20 11/14/20 11/14/20 23:09 23:14 23:19 Temperature Pulse Rate 69 76 81 Blood Pressure 153/82 O2 Sat by Pulse 98 97 98 Oximetry 11/14/20 11/14/20 11/14/20 23:24 23:29 23:34 Temperature Pulse Rate 75 74 73 Blood Pressure O2 Sat by Pulse 97 97 96 Oximetry 11/14/20 11/14/20 11/14/20 23:39 23:44 23:49 Temperature Pulse Rate 62 80 75 Blood Pressure 131/73 O2 Sat by Pulse 98 97 96 Oximetry 11/14/20 11/14/20 11/15/20 23:54 23:59 00:04 Temperature Pulse Rate 69 76 73 Blood Pressure O2 Sat by Pulse 98 98 98 Oximetry 11/15/20 11/15/20 11/15/20 00:09 00:10 00:14 Temperature Pulse Rate 75 87 75 Blood Pressure O2 Sat by Pulse 97 84 98 Oximetry 11/15/20 11/15/20 11/15/20 00:19 00:24 00:27 Temperature 98.0 F Pulse Rate 89 77 Blood Pressure 141/72 O2 Sat by Pulse 98 97 Oximetry 11/15/20 11/15/20 11/15/20 00:29 00:34 00:39 Temperature Pulse Rate 79 71 75 Blood Pressure O2 Sat by Pulse 97 98 97 Oximetry 11/15/20 11/15/20 11/15/20 00:44 00:49 00:54 Temperature Pulse Rate 71 78 71 Blood Pressure 121/65 O2 Sat by Pulse 97 97 97 Oximetry 11/15/20 11/15/20 11/15/20 00:59 01:04 01:09 Temperature Pulse Rate 69 74 75 Blood Pressure O2 Sat by Pulse 97 97 97 Oximetry 11/15/20 11/15/20 11/15/20 01:14 01:19 01:31 Temperature Pulse Rate 72 82 84 Blood Pressure 133/65 O2 Sat by Pulse 97 97 98 Oximetry 11/15/20 11/15/20 11/15/20 01:36 01:41 01:46 Temperature Pulse Rate 70 71 77 Blood Pressure O2 Sat by Pulse 98 98 97 Oximetry 11/15/20 11/15/20 11/15/20 01:49 01:51 01:56 Temperature Pulse Rate 71 71 80 Blood Pressure 128/70 O2 Sat by Pulse 98 98 Oximetry 11/15/20 11/15/20 11/15/20 02:01 02:06 02:11 Temperature Pulse Rate 73 71 70 Blood Pressure O2 Sat by Pulse 97 97 98 Oximetry 11/15/20 11/15/20 11/15/20 02:16 02:19 02:21 Temperature Pulse Rate 74 69 71 Blood Pressure 143/69 O2 Sat by Pulse 97 98 Oximetry 11/15/20 11/15/20 11/15/20 02:26 02:31 02:36 Temperature Pulse Rate 65 69 70 Blood Pressure O2 Sat by Pulse 97 96 97 Oximetry 11/15/20 11/15/20 11/15/20 02:41 02:43 02:46 Temperature Pulse Rate 68 71 71 Blood Pressure O2 Sat by Pulse 97 94 95 Oximetry 11/15/20 11/15/20 11/15/20 02:49 02:51 02:54 Temperature Pulse Rate 102 H 63 77 Blood Pressure 141/76 O2 Sat by Pulse 96 94 Oximetry 11/15/20 11/15/20 11/15/20 02:56 03:01 03:03 Temperature Pulse Rate 70 59 L 62 Blood Pressure O2 Sat by Pulse 96 96 94 Oximetry 11/15/20 11/15/20 11/15/20 03:06 03:09 03:11 Temperature Pulse Rate 70 66 68 Blood Pressure O2 Sat by Pulse 95 94 94 Oximetry 11/15/20 11/15/20 11/15/20 03:15 03:16 03:20 Temperature Pulse Rate 67 68 60 Blood Pressure 138/71 O2 Sat by Pulse 94 93 Oximetry 11/15/20 11/15/20 11/15/20 03:21 03:26 03:27 Temperature Pulse Rate 63 67 66 Blood Pressure O2 Sat by Pulse 93 97 94 Oximetry 11/15/20 11/15/20 11/15/20 03:31 03:35 03:36 Temperature Pulse Rate 66 69 67 Blood Pressure O2 Sat by Pulse 95 94 93 Oximetry 11/15/20 11/15/20 11/15/20 03:41 03:46 03:50 Temperature Pulse Rate 67 64 58 L Blood Pressure 138/66 O2 Sat by Pulse 93 94 Oximetry 11/15/20 11/15/20 11/15/20 03:51 03:56 03:57 Temperature Pulse Rate 65 65 65 Blood Pressure O2 Sat by Pulse 94 94 94 Oximetry 11/15/20 11/15/20 11/15/20 04:01 04:03 04:06 Temperature Pulse Rate 64 60 63 Blood Pressure O2 Sat by Pulse 94 94 94 Oximetry 11/15/20 11/15/20 11/15/20 04:10 04:11 04:16 Temperature Pulse Rate 64 65 67 Blood Pressure O2 Sat by Pulse 94 93 94 Oximetry 11/15/20 11/15/20 11/15/20 04:19 04:21 04:26 Temperature Pulse Rate 81 69 65 Blood Pressure 142/100 O2 Sat by Pulse 94 95 Oximetry 11/15/20 11/15/20 11/15/20 04:27 04:31 04:33 Temperature Pulse Rate 65 71 61 Blood Pressure O2 Sat by Pulse 94 93 94 Oximetry 11/15/20 11/15/20 11/15/20 04:36 04:38 04:41 Temperature Pulse Rate 58 L 63 65 Blood Pressure O2 Sat by Pulse 95 94 94 Oximetry 11/15/20 11/15/20 11/15/20 04:44 04:46 04:49 Temperature Pulse Rate 65 62 68 Blood Pressure 134/73 O2 Sat by Pulse 94 97 Oximetry 11/15/20 11/15/20 11/15/20 04:51 04:56 05:01 Temperature Pulse Rate 72 71 71 Blood Pressure O2 Sat by Pulse 95 96 98 Oximetry 11/15/20 11/15/20 11/15/20 05:06 05:11 05:16 Temperature Pulse Rate 73 73 69 Blood Pressure O2 Sat by Pulse 98 96 96 Oximetry 11/15/20 11/15/20 11/15/20 05:19 05:21 05:26 Temperature Pulse Rate 71 65 69 Blood Pressure 156/81 O2 Sat by Pulse 96 97 Oximetry 11/15/20 11/15/20 11/15/20 05:31 05:36 05:41 Temperature Pulse Rate 65 66 71 Blood Pressure O2 Sat by Pulse 96 97 97 Oximetry 11/15/20 11/15/20 11/15/20 05:46 05:49 05:51 Temperature Pulse Rate 64 68 83 Blood Pressure 148/80 O2 Sat by Pulse 98 92 Oximetry 11/15/20 11/15/20 11/15/20 06:08 06:13 06:18 Temperature Pulse Rate 63 63 62 Blood Pressure O2 Sat by Pulse 98 97 97 Oximetry 11/15/20 11/15/20 11/15/20 06:19 06:23 06:28 Temperature Pulse Rate 60 70 68 Blood Pressure 143/74 O2 Sat by Pulse 97 98 Oximetry 11/15/20 11/15/20 11/15/20 06:33 06:38 06:43 Temperature Pulse Rate 83 71 67 Blood Pressure O2 Sat by Pulse 98 99 97 Oximetry 11/15/20 11/15/20 11/15/20 06:48 06:50 06:53 Temperature Pulse Rate 70 72 69 Blood Pressure 121/72 O2 Sat by Pulse 98 99 Oximetry 11/15/20 11/15/20 11/15/20 06:58 07:03 09:06 Temperature Pulse Rate 65 69 96 H Blood Pressure 116/69 O2 Sat by Pulse 98 98 Oximetry 11/15/20 11/15/20 11/15/20 09:36 10:06 10:34 Temperature Pulse Rate 81 76 79 Blood Pressure 119/58 112/64 137/78 O2 Sat by Pulse Oximetry - Exam Breasts: normal Cardiovascular: Regular rate Lungs: Clear to auscultation, Normal air movement Abdomen: Present: normal appearance, soft, normal bowel sounds Uterus: Present: normal, firm, fundal height above umbilicus FHR: category 1 Uterine Contraction Monitor Mode: Internal Cervical Dilatation: 4.5 (Moderate amount of thin brown meconium stained fluids with a small amount of particulate upon AROM at 1018) Cervical Effacement Percentage: 70 station: -1 Uterine Contraction Frequency (min): 4 Uterine Contraction Pattern: Regular Uterine Tone Measurement Phase: Resting Uterine Contraction Intensity: Moderate Extremities: normal - Labs Labs: Abnormal Labs 11/13/20 11/13/20 11/14/20 17:59 17:59 19:45 RDW 18.7 H Creatinine 0.5 L Lactate Dehydrogenase 227 H Urine Creatinine 49.8 H Laboratory Results - last 24 hr 11/14/20 11/14/20 11/14/20 09:24 09:24 09:24 Urine Total Volume Urine Creatinine Ur Creatinine 24 Hour Syphilis IgG Antibody Nonreactive Coronavirus (PCR) HIV 1&2 Antibody Rapid Non react HIV P24 Antigen Non react Rubella IgG Antibody Immune 11/14/20 11/14/20 09:25 19:45 Urine Total Volume 2600 Urine Creatinine 49.8 H Ur Creatinine 24 Hour 1.3 Syphilis IgG Antibody Coronavirus (PCR) Negative HIV 1&2 Antibody Rapid HIV P24 Antigen Rubella IgG Antibody
[2020-11-15] MEDS ORDERED: ONDANSETRON 4 MG/2 ML INJ IV PRN (11:00)
[2020-11-15] MEDS ORDERED: OXYTOCIN DRIP 30 UNITS/500 ML BAG IV SCH ×2 (11:00)
[2020-11-15] MEDS ORDERED: BUTORPHANOL 2 MG/1 ML INJ IV PRN (11:00)
[2020-11-15] MEDS ORDERED: NALOXONE 0.4 MG/1 ML INJ IV PRN (11:00)
[2020-11-15] MEDS ORDERED: fentaNYL 100 MCG/2 ML INJ ONE (12:13)
[2020-11-15] MEDS ORDERED: fentaNYL 100 MCG/2 ML INJ IV ONE (12:15)
[2020-11-15] MEDS ORDERED: NALOXONE 2 MG/2 ML INJ IV PRN (13:37)
--- NOTE | 2020-11-15 13:38 | Anesthesia Consultation ---
Anesthesia Consult and Med Hx Date of service: 11/15/20 - Airway Anesthetic Teeth Evaluation: Good ROM Head & Neck: Adequate Mental/Hyoid Distance: Adequate Mallampati Class: Class II Intubation Access Assessment: Probably Good - Pulmonary Exam CTA: Yes - Cardiac Exam Cardiac Exam: RRR - Pre-Operative Health Status ASA Pre-Surgery Classification: ASA3 Proposed Anesthetic Plan: Epidural - Pulmonary Hx Asthma: No COPD: No Hx Pneumonia: No - Cardiovascular System Hx Hypertension: Yes - Central Nervous System Hx Seizures: No Hx Psychiatric Problems: No - Endocrine Hx Renal Disease: No Hx End Stage Renal Disease: No Hx Hypothyroidism: No Hx Hyperthyroidism: No - Hematic Hx Anemia: No Hx Sickle Cell Disease: No - Other Systems Hx Alcohol Use: No Hx Obesity: Yes
--- NOTE | 2020-11-15 13:41 | Progress Note ---
Labor Epidural - Labor Epidural Start Time: 13:24 Stop Time: 13:34 Performed by:: FANG DENNY Procedure: Patient is requesting epidural for labor pain. H&P, and labs reviewed. Procedure explained, questions answered, consent obtained. Patient in sitting position with blood pressure cuff and pulse ox on and working. Timeout performed immediately before start of procedure. Sterile betadine prep/drape. 3 mL 1% lidocaine skin wheal at L[3]-L[4]. 18-gauge Hustead epidural needle advanced to [id number] with saline at [7] cm. 27-gauge spinal needle advanced until clear, free-flowing CSF. Intrathecal dexmedetomidine [5] mcg administered and needle removed. Epidural catheter advanced to [12] cm, negative aspiration for blood and csf, negative test dose 3 ml 1.5% lidocaine with epinephrine. Sterile steri-strips and tegaderm applied, followed by tape reinforcement. Patient tolerated procedure well. Rima SRNA
[2020-11-15] MEDS ORDERED: fentaNYL-BUPIV 2 MCG/ML-0.125% 200 MCG/100 ML BAG EPIDURAL SCH (14:00)
[2020-11-15] MEDS ORDERED: diphenhydrAMINE 25 MG CAP PO PRN (16:53)
[2020-11-15] MEDS ORDERED: LANOLIN/ZINC/DIMETHICONE (LANSINOH) 7 GM TP PRN (16:53)
[2020-11-15] MEDS ORDERED: WITCH HAZEL/ GLYCERIN PAD TP PRN (16:53)
[2020-11-15] MEDS ORDERED: CARBOPROST TROMETHAMINE 250 MCG/1 ML INJ IM ONE ×2 (17:35)
[2020-11-15] MEDS ORDERED: miSOPROStol 200 MCG TAB ONE (17:35)
[2020-11-15] MEDS ORDERED: miSOPROStol 200 MCG TAB PR ONE (17:35)
--- NOTE | 2020-11-15 18:18 | Procedure Note ---
OB Delivery Note - Delivery Date of Delivery: 11/15/20 (1608) Surgeon: LE GILMAN Estimated blood loss: other (600) - Vaginal Delivery presentation: vertex Delivery position: OA Intrapartum events: gestational hypertension, other(please specify) (Twin Gestation with Demise at 28 weeks) Delivery induction: misoprostol Delivery augmentation: rupture of membranes, pitocin Delivery monitor: external FHT, internal uterine Route of delivery: Delivery placenta: spontaneous Delivery cord: 3 umbilical vessels Episiotomy: none Delivery laceration: 1st degree Delivery repair: vicryl Anesthesia: epidural Delivery comments: of Twin A, 6'4 female infant over a 1st degree vaginal laceration under epidural anesthesia with Apgars of 8 and 8 at 1608 on 11/15/2020. Infant directly to maternal abd/chest, skin to skin contact. Spontaneous delivery of Twin B, IUFD (female) at 1615 on 11/15/2020. Cord clamped and cut, demise placed in placenta basin. Delayed cord clamping and cutting of Twin A; Cord by Maternal Grandmother. Spontaneous delivery of Placenta A complete and intact with Burrell side presenting at 1616. Spontaneous delivery of Placenta B complete and intact at 1624. Fundus is firm and midline located 5 below the U. Lochia is scant. Vaginal lacerations repaired with 2-[address]-1. Cord blood collected. GBS Prophylaxis X 1. EBL: 350. Called back to room by RN due to heavy uterine bleeding at 1730. Large amount of blood observed on underpad. Bladder emptied with In and Out Cath. 100cc of pale yellow urine voided. Manual removal of several large blood clots from uterus and vaginal vault. Blood clots had a foul odor. Fundus is firm and midline located 3 below the U. Hemobate 250mcg given IM; 800mcg of Cytotec placed per rectum. Bleeding became scant again. To Continue Clindamycin 900mg IV q 8 hours x 24 hours . - A at 1 minute: 8 at 5 minutes: 8 Gender: Female (6'4) B at 1 minute: 0 at 5 minutes: 0 Gender: Female
[2020-11-15] MEDS ORDERED: LOPERAMIDE 2 MG CAP PO PRN (20:26)
[2020-11-15] MEDS ORDERED: MINERAL OIL 30 ML ORAL LIQD PO PRN (22:00)
[2020-11-16] MEDS: IBUPROFEN 600 MG TAB PO SCH ×3 (00:12→12:53)
[2020-11-16 06:07] LABS: Hemoglobin 7.8 gm/dl (10.1-14.3)
[2020-11-16] MEDS: FERROUS SULFATE 325 MG TAB PO SCH (09:15)
--- NOTE | 2020-11-16 09:37 | Post Anesthesia Evaluation ---
- Post Anesthesia Evaluation Patient Participated: Yes Airway Patent: Yes Stable Respiratory Function: Yes Nausea/Vomiting: No Temp > 96.8F: Yes Pain Manageable: Yes Adequeate Hydration: Yes Anesthesia Complications: No Block Receding Appropriately: Yes
--- NOTE | 2020-11-16 13:35 | Progress Note ---
Assessment and Plan PPD# 1 A: S/P twin B IUFD Asymptomatic anemia P: Continue routine pp care with Fe supplementation Encourage hydration and ambulation D/C home tomm if stable Subjective - Subjective Date of service: 11/16/20 Principal diagnosis: TIUP with demis of fetus B Patient reports: appetite normal, voiding normally, pain well controlled, ambulating normally Eunice: doing well, bottle feeding Objective - Vital Signs Latest vital signs: Vital Signs Temp Pulse Resp BP BP Pulse Ox 11/16/20 11:58 97.8 F 83 18 132/65 95 11/16/20 07:30 97.8 F 78 18 138/73 96 11/16/20 05:10 98.4 F 84 18 121/67 97 11/16/20 01:39 98.5 F 91 H 18 105/46 95 11/15/20 21:00 98.6 F 82 18 138/83 100 11/15/20 19:35 99 H 99 11/15/20 19:30 90 99 11/15/20 19:28 88 138/70 11/15/20 19:25 104 H 99 11/15/20 19:20 98 H 100 11/15/20 19:15 85 98 11/15/20 19:14 88 94 11/15/20 19:13 84 126/74 11/15/20 19:10 90 99 11/15/20 19:05 98 H 99 11/15/20 19:02 88 123/72 11/15/20 19:00 99.5 F 93 H 17 123/72 99 11/15/20 18:55 96 H 98 11/15/20 18:50 108 H 99 11/15/20 18:45 102 H 99 11/15/20 18:40 87 98 11/15/20 18:35 87 99 11/15/20 18:30 92 H 100 11/15/20 18:29 91 H 105/53 11/15/20 18:25 92 H 100 11/15/20 18:20 100 H 99 11/15/20 18:15 93 H 99 11/15/20 18:13 95 H 127/78 11/15/20 18:10 105 H 98 11/15/20 18:05 113 H 99 11/15/20 18:00 111 H 99 11/15/20 17:58 108 H 147/76 11/15/20 17:55 128 H 99 11/15/20 17:50 87 99 11/15/20 17:45 94 H 99 11/15/20 17:43 85 103/51 11/15/20 17:40 78 100 11/15/20 17:35 79 100 11/15/20 17:30 73 100 11/15/20 17:28 76 118/63 11/15/20 17:25 85 100 11/15/20 17:20 67 99 11/15/20 17:15 70 99 11/15/20 17:13 69 123/56 11/15/20 17:10 71 99 11/15/20 17:05 79 99 11/15/20 17:00 73 99 11/15/20 16:58 78 132/62 11/15/20 16:55 78 100 11/15/20 16:50 77 99 11/15/20 16:45 89 99 11/15/20 16:43 75 128/60 11/15/20 16:40 81 99 11/15/20 16:35 95 H 97 11/15/20 16:30 82 100 11/15/20 16:28 86 135/79 11/15/20 16:25 110 H 99 11/15/20 16:20 105 H 99 11/15/20 16:15 84 98 11/15/20 16:13 90 133/81 11/15/20 16:10 90 98 11/15/20 16:05 90 99 11/15/20 16:00 80 99 11/15/20 15:58 77 126/76 11/15/20 15:55 81 99 11/15/20 15:50 75 99 11/15/20 15:45 72 99 11/15/20 15:42 75 123/72 11/15/20 15:40 76 98 11/15/20 15:36 73 125/61 11/15/20 15:35 73 99 11/15/20 15:30 66 139/78 98 11/15/20 15:25 70 97 11/15/20 15:24 63 136/77 11/15/20 15:20 69 134/75 100 11/15/20 15:15 75 140/76 97 11/15/20 15:10 58 L 140/76 98 11/15/20 15:05 65 138/74 98 11/15/20 15:01 67 145/81 11/15/20 15:00 67 99 11/15/20 14:56 75 149/83 11/15/20 14:55 64 100 11/15/20 14:52 60 134/68 11/15/20 14:50 78 97 11/15/20 14:46 68 171/80 11/15/20 14:45 74 100 11/15/20 14:40 65 145/72 99 11/15/20 14:35 78 138/75 100 11/15/20 14:30 74 100 11/15/20 14:29 69 132/71 11/15/20 14:25 68 128/71 98 11/15/20 14:20 76 98 11/15/20 14:19 67 126/66 11/15/20 14:15 71 98 11/15/20 14:14 68 129/66 11/15/20 14:10 66 130/68 99 11/15/20 14:05 67 146/69 99 11/15/20 14:00 73 146/71 99 11/15/20 13:55 71 153/83 99 11/15/20 13:50 69 142/70 98 11/15/20 13:45 75 143/71 99 11/15/20 13:40 76 155/75 100 11/15/20 13:35 69 156/76 99 Intake and Output 11/15/20 11/16/20 11/16/20 22:59 06:59 14:59 Intake Total 240 Output Total 350 Balance -350 240 Intake: Oral 240 Output: Urine 350 Void 350 Other: Total, Intake Amount 120 Total, Output Amount 350 # Voids Void 1 - Exam Breasts: Present: normal Abdomen: Present: normal appearance, soft, normal bowel sounds Vulva: both: normal Uterus: Present: normal, firm, fundal height below umbilicus Extremities: Present: normal Incision: Present: normal, intact, other (1st degree perineal lac) - Labs Labs: Abnormal lab results 11/16/20 Range/Units 05:40 Hgb 7.8 L D (10.1-14.3) gm/dl Hct 22.0 L D (30.3-42.9) %
[2020-11-17] MEDS: FERROUS SULFATE 325 MG TAB PO SCH ×2 (03:43→09:54)
[2020-11-17] MEDS: IBUPROFEN 600 MG TAB PO SCH (03:45)
--- NOTE | 2020-11-17 10:39 | Discharge Summary ---
Providers - Providers Date of Admission: 11/15/20 17:26 Date of discharge: 11/17/20 (1600) Attending physician: ISAK GARCÍA JR, MD Primary care physician: ISAK GARCÍA JR, MD Hospitalization Reason for admission: induction of labor, other (Twin IUP with twin B with a demise @ 28 wks) Delivery: Episiotomy: none Laceration: 1st degree (healing as expected) Other procedures: none complications: none Discharge diagnosis: IUP at term delivered, other (Anemia), intrapartum demise (Twin B) baby: twins (Twin A - viable female, Twin B female demise) Hospital course: See admission H & P; OB delivery summary and PP progress notes Condition at discharge: Stable Disposition: DC-01 TO HOME OR SELFCARE - Discharge Diagnoses (1) demise before 22 weeks with retention of fetus Status: Acute (2) Elevated blood pressure affecting in third trimester, antepartum Status: Acute Comment: Discharge with Labetalol 200mg po BID Rx and F/U at office in 7 days for B/P check (3) Anemia Status: Acute Qualifiers: Anemia type: other cause Other causes of anemia: acute posthemorrhagic Qualified Code(s): D62 - Acute posthemorrhagic anemia Comment: Asymptomatic (4) Status post normal vaginal delivery Status: Acute Comment: of viable Twin A Plan - Discharge Medications Prescriptions: Ferrous Sulfate [Feosol 325 MG tab] 325 mg PO TID 30 Days #90 tablet labetaloL [Labetalol 200mg TAB] 200 mg PO BID 14 Days #28 tablet - Provider Discharge Summary Activity: routine, no sex for 6 weeks, no heavy lifting 4 weeks, no strenuous exercise Diet: other (Iron rich diet) Instructions: routine Additional instructions: [] Smoking cessation referral if applicable(refer to patient education folder for contact #) [] Refer to [facility] Booklet Call your doctor immediately for: * Fever > 100.5 * Heavy vaginal bleeding ( >1 pad per hour) * Severe persistent headache * Shortness of breath * Reddened, hot, painful area to leg or breast * Drainage or odor from incision. * Keep incision clean and dry at all times and follow doctor's instructions regarding bathing/showering * F/U with office in 7 days for B/P check - Follow up plan Follow up: ISAK GARCÍA JR, MD [Primary Care Provider] - 7 Days
[2020-11-17 17:28] VITALS: BP 140/81
== END 2020-11-17 17:30 | disposition home or self-care (01) | DRG 806 ==
LOC: TRG 16:12 → APU 16:13 → LD 18:11 → TRG 11-15 17:26 → OB 11-15 20:37
PROVIDERS: ADMIT Obstetrics & Gynecology; ATTEND Obstetrics & Gynecology
PROC: 10E0XZZ Delivery of Products of Conception, External Approach (ICD-10-PCS; principal; 2020-11-15)
PROC: 10H07YZ Insertion of Other Device into Products of Conception, Via Natural or Artificial Opening (ICD-10-PCS; 2020-11-15)
PROC: 10907ZC Drainage of Amniotic Fluid, Therapeutic from Products of Conception, Via Natural or Artificial Opening (ICD-10-PCS; 2020-11-15)
PROC: 3E0D7GC Introduction of Other Therapeutic Substance into Mouth and Pharynx, Via Natural or Artificial Opening (ICD-10-PCS; 2020-11-15)
PROC: 0HQ9XZZ Repair Perineum Skin, External Approach (ICD-10-PCS; 2020-11-15)
PROC: 3E0R3BZ Introduction of Anesthetic Agent into Spinal Canal, Percutaneous Approach (ICD-10-PCS; 2020-11-15)
PROC: 00HU33Z Insertion of Infusion Device into Spinal Canal, Percutaneous Approach (ICD-10-PCS; 2020-11-15)
DX: O13.4 Gestational [pregnancy-induced] hypertension without significant proteinuria, complicating childbirth (principal); O41.03X0 Oligohydramnios, third trimester, not applicable or unspecified; Z37.3 Twins, one liveborn and one stillborn; D62 Acute posthemorrhagic anemia; O36.4XX2 Maternal care for intrauterine death, fetus 2; O30.043 Twin pregnancy, dichorionic/diamniotic, third trimester; Z3A.36 36 weeks gestation of pregnancy; E66.01 Morbid (severe) obesity due to excess calories; Z88.0 Allergy status to penicillin; O90.81 Anemia of the puerperium; O70.0 First degree perineal laceration during delivery; Z20.822 Contact with and (suspected) exposure to COVID-19
CPT/HCPCS: 36415; 76816; 76819; 81001; 82565; 82570; 83615; 84450; 84460; 84550; 85014; 85018; 85027; 86592; 86706; 86762; 86850; 86900; 86901; 87116; 87806; 96360; 96365; 96366; 96372; 96374; G0378; J0702; J2590; J3010; J3370; J7120; U0003